=== PATIENT | female | born 1970 ===

== ENCOUNTER 2020-08-30 09:55 | Outpatient (REF) | payer OTHER, SELFPAY | END 2020-08-30 09:56 | disposition home or self-care (01) | LOC: HO.LAB 09:55 | PROVIDERS: Visit Provider Internal Medicine | DX: Z20.828 Contact with and (suspected) exposure to other viral communicable diseases (principal) | CPT/HCPCS: 87635 ==

== ENCOUNTER 2020-09-15 11:48 | Outpatient (REF) | payer OTHER, SELFPAY ==
--- NOTE | 2020-09-15 | MM_ITS ---
EXAMINATION: MM SCREENING DIGITAL BREAST TOMOSYNTHESIS, BILATERAL CLINICAL INFORMATION: Screening. Asymptomatic. The lifetime risk of breast cancer based on the Tyrer-Cuzick Model is 18.1%. COMPARISON: Mammography: March 16, 2019 and studies dating back to December 14, 2013 TECHNIQUE: Digital breast tomosynthesis is performed in both the craniocaudal and mediolateral oblique views along with computer-aided detection (CAD). Synthesized 2D images are generated from the tomosynthesis. FINDINGS: The breasts are heterogeneously dense, which may obscure small masses (ACR BI-RADS breast composition Category c). No new abnormal dominant mass or suspicious grouping of microcalcifications is identified. Surgical changes from previous bilateral breast reduction are evident. MM/MM tomosynthesis screening BI IMPRESSION: There are no significant changes from prior study. ASSESSMENT: BI-RADS 2: Benign RECOMMENDATION: Routine annual mammography screening. This patient's information was entered into a reminder system with a target due date for their next mammogram.
== END 2020-09-15 11:49 | disposition home or self-care (01) ==
LOC: HO.MAMMO 11:48
PROVIDERS: PCP Internal Medicine; Visit Provider Internal Medicine
DX: Z12.31 Encounter for screening mammogram for malignant neoplasm of breast (principal)
CPT/HCPCS: 77063; 77067

== ENCOUNTER → 2021-06-26 09:58 | Outpatient (BNVA) | payer OTHER, SELFPAY | PROVIDERS: PCP Internal Medicine; Visit Provider Surgery ==

== ENCOUNTER 2021-07-20 12:30 | Outpatient (REF) | payer OTHER, SELFPAY ==
[2021-07-20 12:45] VITALS: BP 151/87; PULSE 82; RESP 16; TEMP 36.4; O2SAT 98
[2021-07-20 12:46] VITALS: BMI 30.9
--- NOTE | 2021-07-20 13:31 | W.PM.OPN ---
Operative Note Operative Note Date of Service: 07/20/21 Narrative: Preop diagnosis: lipoma, right shoulder Postop diagnosis: Lipoma, right shoulder Procedure: Excision of lipoma, right shoulder under local anesthesia Surgeon: Herb Arias MD The patient is a 51-year-old female with a large lipomatous mass on the right shoulder. She wanted this removed. She understood the technique of excision under local anesthesia. She was aware of the risks, benefits, and alternatives She was brought to the minor procedure room and placed supine. The area of the lipomas prepped and draped. Lidocaine 1% was used for local anesthesia. A surgical time-out had been done. I made an incision on the skin overlying the lipoma using a blade 15. And this was carried down through the full-thickness skin subcutaneous fat until the lipomatous tissue was visualized. I sharply dissected the lipomatous tissue on the rest of the subcutaneous layer and posteriorly from the fascia of the right shoulder using Metzenbaum scissors. We continued this dissection until the entire lipomas completely . The lipoma measured about 8 cm by 5 0.5 cm There was noted hemostasis. I therefore closed the incision with full-thickness nylon 3-0 interrupted sutures. Dressings were applied. The patient tolerated procedure well. There were no complications noted. She was given wound care instructions. There was minimal blood loss.
== END 2021-07-20 12:31 | disposition home or self-care (01) ==
LOC: HO.MS 12:30
PROVIDERS: PCP Internal Medicine; Visit Provider Surgery
PROC: (CPT 11406; principal; 2021-07-20 12:50)
DX: D17.21 Benign lipomatous neoplasm of skin and subcutaneous tissue of right arm (principal); M79.621 Pain in right upper arm
CPT/HCPCS: 11406; 88304

== ENCOUNTER 2021-07-26 10:14 | Outpatient (REF) | payer OTHER, SELFPAY ==
[2021-07-26 11:22] LABS: MANUAL DIFF FLAG NO
[2021-07-26 11:28] LABS: Basophils Absolute Auto 0.1 X10*3/uL (0.0-0.2); Basophils Percent Auto 0.7 % (0-2); Eosinophils Absolute Auto 0.2 X10*3/uL (0.0-0.4); Eosinophils Percent Auto 2.5 % (0-4); Hematocrit 37.2 % (37-47); Hemoglobin 12.2 g/dl (12.0-16.0); Imm Gran Abs Auto 0.03 X10*3/uL (0.00-0.03); Imm Gran Pct Auto 0.4 % (0.0-0.4); Lymphocytes Percent Auto 25.2 % (20-40); Mean Corpuscular HGB Conc 32.8 g/dl (31.0-35.0); Mean Corpuscular Hemoglobin 28.4 pg (27.0-33.0); Mean Corpuscular Volume 86.5 fL (80-98); Mean Platelet Volume 10.6 fL (9.4-12.3); Monocytes Absolute Auto 0.5 X10*3/uL (0.1-1.2); Monocytes Percent Auto 5.8 % (2-11); Neutrophils Absolute Auto 5.3 X10*3/uL (2.0-8.3); Neutrophils Percent Auto 65.4 % (45-73); Platelet Count 265 X10*3/uL (160-400); Red Cell Distribution Width 14.1 % (11.0-16.0); White Blood Count 8.1 X10*3/uL (4.8-10.8)
[2021-07-26 12:07] LABS: Alanine Aminotransferase 15 U/L (0-31); Albumin Level 4.2 g/dL (3.5-5.0); Alkaline Phosphatase 85 U/L (39-117); Anion Gap 9 (12-20); Aspartate Amino Transferase 18 U/L (5-31); Bilirubin Total 0.9 mg/dL (0.0-1.0); Blood Urea Nitrogen 8 mg/dL (9-16); Calcium 10.1 mg/dL (8.4-10.2); Carbon Dioxide 26 mmol/L (22-29); Chloride 106 mmol/L (96-108); Cholesterol 176 mg/dL; Estimated Glomerular Filt Rate > 60; Glucose Random 91 mg/dL (60-115); HDL Cholesterol 45 mg/dL; LDL Cholesterol Calculated 103 mg/dl; Potassium 4.3 mmol/L (3.3-5.1); Sodium 137 mmol/L (135-145); Total Protein 7.1 g/dL (6.5-8.0); Triglycerides 142 mg/dL
[2021-07-26 13:26] LABS: Ferritin 21 ng/mL (10-250)
== END 2021-07-26 10:15 | disposition home or self-care (01) ==
LOC: HO.LAB 10:14
PROVIDERS: PCP Internal Medicine; Visit Provider Internal Medicine
DX: I10 Essential (primary) hypertension (principal); D50.9 Iron deficiency anemia, unspecified; N94.6 Dysmenorrhea, unspecified; D25.9 Leiomyoma of uterus, unspecified
CPT/HCPCS: 36415; 80053; 80061; 82728; 85025

== ENCOUNTER → 2021-08-02 08:43 | Outpatient (BNVA) | payer OTHER, SELFPAY | PROVIDERS: PCP Internal Medicine; Visit Provider Surgery ==

== ENCOUNTER 2021-11-15 13:54 | Outpatient (REF) | payer OTHER, SELFPAY ==
--- NOTE | ~2021-11-15 | MM_ITS ---
EXAMINATION: MM SCREENING DIGITAL BREAST TOMOSYNTHESIS, BILATERAL CLINICAL INFORMATION: Screening. Asymptomatic. Bilateral reduction mammoplasty within past 3-4 years. The lifetime risk of breast cancer based on the Tyrer-Cuzick Model is 14%. COMPARISON: Mammography: 09/15/2020, 03/16/2019, 03/13/2018, 02/01/2017 TECHNIQUE: Digital breast tomosynthesis is performed in both the craniocaudal and mediolateral oblique views along with computer-aided detection (CAD). Synthesized 2D images are generated from the tomosynthesis. FINDINGS: There are scattered areas of fibroglandular density (ACR BI-RADS breast composition Category b). Breast tissue composition borders on heterogeneously dense. There is minor scarring consistent with the reduction mammoplasty. Biopsy clip marker again noted right breast upper inner quadrant mid depth. Breast shows abnormal calcifications. The axilla and skin contours are unremarkable. Left breast has stable circumscribed nodule central breast on CC view similar to prior studies dating back to 2017. Right breast has focal asymmetry mid 12:00 position, more conspicuous on current exam. Patient will be recalled for additional imaging to exclude developing density. MM/MM tomosynthesis screening BI IMPRESSION: 1. Right: Asymmetry mid 12:00 position. 2. Left: No mammographic evidence of malignancy. ASSESSMENT: BI-RADS 0: Incomplete - Need Additional Imaging Evaluation RECOMMENDATION: 1. Additional views of the right breast (spot CC, spot MLO, standard ML). 2. Targeted ultrasound if warranted after review of the additional views. 3. Radiology department staff will contact the patient for additional imaging. This patient's information was entered into a reminder system with a target due date for their next mammogram.
== END 2021-11-15 13:55 | disposition home or self-care (01) ==
LOC: HO.MAMMO 13:54
PROVIDERS: Visit Provider Internal Medicine
DX: Z12.31 Encounter for screening mammogram for malignant neoplasm of breast (principal)
CPT/HCPCS: 77063; 77067

== ENCOUNTER 2021-11-21 13:41 | Outpatient (REF) | payer OTHER, SELFPAY ==
--- NOTE | ~2021-11-21 | MM_ITS ---
EXAMINATION: MM DIAGNOSTIC DIGITAL BREAST TOMOSYNTHESIS, RIGHT US DIAGNOSTIC ULTRASOUND BREAST, RIGHT CLINICAL INFORMATION: Recall from screening for focal asymmetry mid 12:00 right breast more conspicuous on recent exam. Prior history reduction mammoplasty within past 3-4 years. TC score 14%. COMPARISON: Mammography: 11/15/2021, 09/15/2020, 03/16/2019, 03/13/2018 TECHNIQUE: Digital breast tomosynthesis is performed. 2D images are generated from the tomosynthesis. The following views are obtained: Spot MLO, spot CC, standard ML. Ultrasound right breast is targeted from benign o'clock through 2:00 position. Grayscale imaging and color Doppler are performed without and with harmonics. FINDINGS: There are scattered areas of fibroglandular density (ACR BI-RADS breast composition Category b). There is denser breast tissue composition in the upper quadrants. The asymmetry is again noted on the standard ML view mid depth superior breast. There is some fatty composition within this area suggesting fibroglandular tissue. There is no persistence on the spot MLO or spot CC views suggesting summation artifact. Ultrasound right breast demonstrates no cystic or solid mass or architectural abnormality. No focal duct ectasia. Results are discussed with the patient at time of visit, using an per diem interpreter. There is no persistent finding on the T2 spot views. No ultrasound correlate. Finding on recent screening likely summation artifact. As a precaution, patient will be reassessed again in 6 months to exclude remote possibility of an occult developing density. MM/MM tomosynthesis added views R IMPRESSION: Probable summation artifact upper right breast. No ultrasound correlate. ASSESSMENT: BI-RADS 3: Probably Benign RECOMMENDATION: Diagnostic right mammography in 6 months. This patient's information was entered into a reminder system with a target due date for their next mammogram.
== END 2021-11-21 13:42 | disposition home or self-care (01) ==
LOC: HO.MAMMO 13:41
PROVIDERS: PCP Internal Medicine; Visit Provider Internal Medicine
DX: N64.89 Other specified disorders of breast (principal)
CPT/HCPCS: 76642; 77061; 77065

== ENCOUNTER 2022-01-11 10:45 | Outpatient (REF) | payer OTHER, SELFPAY ==
[2022-01-11 16:07] LABS: CT PCR NOT DETECTED (Not Detect.); NG PCR NOT DETECTED (Not Detect.)
[2022-01-18 06:47] LABS: HPV 16 RNA NOT DETECTED (NOT DETECTED); HPV mRNA E6/E7 rflx Detected (Not Detected)
== END 2022-01-11 10:46 | disposition home or self-care (01) ==
LOC: HO.LAB 10:45
PROVIDERS: PCP Internal Medicine; Visit Provider Obstetrics & Gynecology
DX: N94.6 Dysmenorrhea, unspecified (principal); Z11.51 Encounter for screening for human papillomavirus (HPV); Z12.4 Encounter for screening for malignant neoplasm of cervix
CPT/HCPCS: 87491; 87591; 87624; 87625; 88142

== ENCOUNTER 2022-02-01 10:45 | Outpatient (REF) | payer OTHER, SELFPAY ==
--- NOTE | ~2022-02-01 | US_ITS ---
EXAM: Pelvic Ultrasound CLINICAL INDICATION: Dysmenorrhea COMPARISON: CT abdomen pelvis 10/12/2020 and pelvic ultrasound 03/11/2017 TECHNIQUE: The pelvis was evaluated using transabdominal and transvaginal imaging. FINDINGS: The uterus measures 13.3 x 6.1 x 9.0 cm in longitudinal by AP by transverse dimension. The endometrial stripe measures 0.6 cm. Several small uterine fibroids are noted, the largest measuring approximately 2.3 cm (previously 2.8 cm). Prominent nabothian cysts are noted within the cervix. The left ovary measures approximately 3.2 x 1.9 x 2.5 CM. 3 mm echogenic focus is again noted within the left ovary and suspected to be a small calcification. The right ovary measures approximately 3.4 x 2.4 x 2.9 cm and is normal. There is no free fluid in the pelvis. US/US pelvic and transvaginal IMPRESSION: -Uterine fibroids again noted. -Stable 3 mm echogenic focus of the left ovary, suspected calcification. -Nabothian cyst of the cervix. -Endometrial stripe measures 6 mm in thickness. Correlation with menstrual cycle recommended.
== END 2022-02-01 10:46 | disposition home or self-care (01) ==
LOC: HO.US 10:45
PROVIDERS: Visit Provider Obstetrics & Gynecology
DX: N94.6 Dysmenorrhea, unspecified (principal)
CPT/HCPCS: 76830; 76856

== ENCOUNTER 2022-02-28 08:42 | Outpatient (REF) | payer OTHER, SELFPAY | END 2022-02-28 08:43 | disposition home or self-care (01) | LOC: HO.LAB 08:42 | PROVIDERS: PCP Internal Medicine; Visit Provider Obstetrics & Gynecology | DX: R87.610 Atypical squamous cells of undetermined significance on cytologic smear of cervix (ASC-US) (principal); R87.810 Cervical high risk human papillomavirus (HPV) DNA test positive; D21.9 Benign neoplasm of connective and other soft tissue, unspecified | CPT/HCPCS: 57454; 81025; 88305 ==

== ENCOUNTER → 2022-04-11 09:27 | Outpatient (BNVA) | payer OTHER, SELFPAY | PROVIDERS: Visit Provider Obstetrics & Gynecology | DX: Z13.89 Encounter for screening for other disorder (principal) ==

== ENCOUNTER 2022-05-21 10:34 | Outpatient (REF) | payer OTHER, SELFPAY ==
--- NOTE | ~2022-05-21 | MM_ITS ---
EXAMINATION: MM DIAGNOSTIC DIGITAL BREAST TOMOSYNTHESIS, RIGHT CLINICAL INFORMATION: Short interval six-month follow-up for probable benign parenchymal asymmetry 12:00 right breast. History reduction mammoplasty within past 4 years. TC score 18%. COMPARISON: Mammography: 11/21/2021, 152 (BI-RADS 0), 09/15/2020, 03/16/2019; targeted right breast ultrasound 11/21/2021 TECHNIQUE: Digital breast tomosynthesis is performed in both the craniocaudal and mediolateral oblique views along with computer-aided detection (CAD). Synthesized 2D images are generated from the tomosynthesis. FINDINGS: There are scattered areas of fibroglandular density (ACR BI-RADS breast composition Category b). There are scattered shifting fibroglandular parenchymal densities from year to year related to variation in positioning. No developing density or significant changes. Biopsy clip marker again noted mid central 2:00 position. The axilla is unremarkable. Results are provided to the patient at time of visit by the technologist. MM/MM tomosynthesis diagnostic RT IMPRESSION: No significant changes from prior exams. Right breast will be reassessed at time of annual bilateral mammography, due in 6 months. ASSESSMENT: BI-RADS 3: Probably Benign RECOMMENDATION: Diagnostic mammography at time of bilateral exam, due in 6 months. This patient's information was entered into a reminder system with a target due date for their next mammogram.
== END 2022-05-21 10:35 | disposition home or self-care (01) ==
LOC: HO.MAMMO 10:34
PROVIDERS: PCP Internal Medicine; Visit Provider Internal Medicine
DX: N64.89 Other specified disorders of breast (principal); Z41.1 Encounter for cosmetic surgery
CPT/HCPCS: 77061; 77065

== ENCOUNTER 2022-05-28 09:22 | Outpatient (REF) | payer OTHER, SELFPAY ==
[2022-05-28 09:54] LABS: MANUAL DIFF FLAG NO
[2022-05-28 10:44] LABS: Basophils Absolute Auto 0.1 X10*3/uL (0.0-0.2); Eosinophils Absolute Auto 0.3 X10*3/uL (0.0-0.4); Eosinophils Percent Auto 3.3 % (0-4); Hematocrit 36.5 % (37.0-47.0); Hemoglobin 12.3 g/dl (12.0-16.0); Imm Gran Abs Auto 0.02 X10*3/uL (0.00-0.03); Imm Gran Pct Auto 0.3 % (0.0-0.4); Lymphocytes Percent Auto 25.8 % (20-40); Mean Corpuscular HGB Conc 33.7 g/dl (31.0-35.0); Mean Corpuscular Hemoglobin 29.1 pg (27.0-33.0); Mean Corpuscular Volume 86.3 fL (80.0-98.0); Mean Platelet Volume 10.6 fL (9.4-12.3); Monocytes Absolute Auto 0.5 X10*3/uL (0.1-1.2); Monocytes Percent Auto 6.7 % (2-11); Neutrophils Absolute Auto 4.9 x10*3/uL (2.0-8.3); Neutrophils Percent Auto 62.9 % (45-73); Platelet Count 268 X10*3/uL (160-400); Red Blood Count 4.23 X10*6/uL (4.20-5.50); Red Cell Distribution Width 13.7 % (11.0-16.0); White Blood Count 7.8 X10*3/uL (4.8-10.8)
== END 2022-05-28 09:23 | disposition home or self-care (01) ==
LOC: HO.LAB 09:22
PROVIDERS: PCP Internal Medicine; Visit Provider Internal Medicine
DX: Z00.00 Encounter for general adult medical examination without abnormal findings (principal); D50.9 Iron deficiency anemia, unspecified; I10 Essential (primary) hypertension; M17.11 Unilateral primary osteoarthritis, right knee; Z12.4 Encounter for screening for malignant neoplasm of cervix
CPT/HCPCS: 36415; 85025

== ENCOUNTER → 2022-05-30 12:29 | Outpatient (REF) | payer OTHER, SELFPAY ==
--- NOTE | 2022-05-30 12:34 | CA_ITS ---
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 Technically limited study despite use of contrast agent 2. Hyperdynamic LV systolic function with LVEF of greater than 70% with impaired relaxation filling pattern 3. Limited visualization of cardiac valves with normal cardiac valvular Dopplers Findings Procedure Information Contrast agent, definity, is being given per protocol without apparent complications. Left Ventricle The left ventricle was not well visualized. Normal left ventricular cavity size. There is normal left ventricular wall thickness. The left ventricular systolic function is hyperdynamic. The visually estimated ejection fraction is >70%. Spectral Doppler is indicative of an impaired relaxation filling pattern. Right Ventricle The right ventricle was not well visualized. Atria The left atrium is normal in size. There is lipomatous hypertrophy of the interatrial septum. Interatrial shunt cannot be excluded. The right atrium was not well visualized. Aortic Valve The aortic valve was not well visualized. There is no aortic valve stenosis. There is no aortic valve regurgitation. Mitral Valve The mitral valve was not well visualized. There is no mitral valve regurgitation. There is no mitral valve stenosis. Pulmonic Valve The pulmonic valve was not well visualized. Tricuspid Valve The tricuspid valve was not well visualized. Tricuspid regurgitation envelope is inadequate for calculation of right ventricular systolic pressure. Great Vessels The aorta was not well visualized. The pulmonary artery was not well visualized. Venous The inferior vena cava was not well visualized. Pericardium/Pleural The pericardium was not well visualized. Prior Study Comparison No prior study available for comparison. Measurements 2D Linear Measurements IVSd: 0.92 0.6-0.9/0.6-1.0 cm LVIDd: 3.33 3.9-5.3/4.2-5.9 cm LVIDd Index: 1.98 2.4-3.2/2.2-3.1 cm/m2 LVIDs: 1.71 2.0-3.6 cm LVPWd: 0.73 0.7-1.1 cm LA Diam: 3.20 2.7-3.8/3.0-4.0 cm LAIDs Index: 1.90 1.5-2.3 cm/m2 LV Mass: 90.28 67-162/88-224 g LV Mass Index: 53.74 43-95/49-115 g/m2 LVOT Diam: 1.80 3.0+(-)1.3 cm 2D Systolic Function EF 4C: 77.80 >55% EF 2C: 82.50 >55% Mitral Valve MV Pk E: 0.57 MV PK A: 0.70 MV Decel Time: 167.00 E/A: 0.80 E'Lateral: 8.70 E'Medial: 5.87 E/E' Med: 9.80 E/E' Lat: 6.60 PHT: 49.00 MVA PHT: 4.49 Decel Denali: 3.44 Aortic Valve AoV Pk Babar: 1.21 AoV Mn Babar: 0.75 AoV VTI: 0.18 AoV Pk Grad: 6.00 Aov Mn Grad: 3.00 AFIA Cont.VTI: 3.32 LVOT LVOT Pk Babar: 1.17 LVOT Mn Babar: 0.88 LVOT VTI: 0.23 LVOT Pk Grad: 5.00 LVOT Mn Grad: 3.00 LVOT Diam: 1.80 LVOT Area: 2.54 Diastolic Function MV Pk E: 0.57 MV Pk A: 0.70 E/A: 0.80 E'Medial: 5.87 E/E' Med: 9.80 E' Laterial: 8.70 E/E' Lat: 6.60 Right Ventricle TAPSE (mm): 12.20 TVS' Babar: 10.10 Tricuspid Valve RA Press: 3.00 Great Vessels Aorta Sinus of Valsalva: 2.50 2.0-3.5 cm Ao Asc: 2.70 2.1-3.4 cm Pulmonary Valve PV Pk Babar: 0.88 Peak PV Grad: 3.00 Updated in Other Vendor System with Status of Final Carlitos Watson MD electronically signed on 05/30/2022 3:01:35 PM with status of Final
== END ==
LOC: HO.CARD 12:29
PROVIDERS: PCP Internal Medicine; Visit Provider Internal Medicine
DX: I10 Essential (primary) hypertension (principal); R06.02 Shortness of breath
CPT/HCPCS: 93306; Q9957

== ENCOUNTER 2022-07-09 08:41 | Outpatient (REF) | payer OTHER, SELFPAY ==
[2022-07-09 08:51] LABS: MANUAL DIFF FLAG NO
[2022-07-09 09:03] LABS: Basophils Absolute Auto 0.1 X10*3/uL (0.0-0.2); Eosinophils Absolute Auto 0.3 X10*3/uL (0.0-0.4); Eosinophils Percent Auto 3.3 % (0-4); Hematocrit 37.5 % (37.0-47.0); Hemoglobin 13.1 g/dl (12.0-16.0); Imm Gran Abs Auto 0.02 X10*3/uL (0.00-0.03); Imm Gran Pct Auto 0.2 % (0.0-0.4); Lymphocytes Absolute Auto 2.5 X10*3/uL (1.2-4.9); Lymphocytes Percent Auto 30.3 % (20-40); Mean Corpuscular HGB Conc 34.9 g/dl (31.0-35.0); Mean Corpuscular Hemoglobin 29.4 pg (27.0-33.0); Mean Corpuscular Volume 84.3 fL (80.0-98.0); Mean Platelet Volume 9.7 fL (9.4-12.3); Monocytes Absolute Auto 0.5 X10*3/uL (0.1-1.2); Monocytes Percent Auto 5.7 % (2-11); Neutrophils Absolute Auto 4.9 x10*3/uL (2.0-8.3); Neutrophils Percent Auto 59.5 % (45-73); Platelet Count 296 X10*3/uL (160-400); Red Blood Count 4.45 X10*6/uL (4.20-5.50); Red Cell Distribution Width 13.2 % (11.0-16.0); White Blood Count 8.2 X10*3/uL (4.8-10.8)
[2022-07-09 09:37] LABS: Alanine Aminotransferase 19 U/L (0-31); Albumin Level 4.2 g/dL (3.5-5.0); Alkaline Phosphatase 75 U/L (39-117); Anion Gap 14 (12-20); Aspartate Amino Transferase 22 U/L (5-31); Bilirubin Total 0.6 mg/dL (0.0-1.0); Blood Urea Nitrogen 12 mg/dL (9-16); Calcium 10.1 mg/dL (8.4-10.2); Carbon Dioxide 24 mmol/L (22-29); Chloride 103 mmol/L (96-108); Cholesterol 204 mg/dL; Estimated Glomerular Filt Rate > 60; Glucose Random 105 mg/dL (60-115); HDL Cholesterol 47 mg/dL; LDL Cholesterol Calculated 135 mg/dl; Potassium 3.4 mmol/L (3.3-5.1); Sodium 138 mmol/L (135-145); Total Protein 7.7 g/dL (6.5-8.0); Triglycerides 114 mg/dL
== END 2022-07-09 08:42 | disposition home or self-care (01) ==
LOC: HO.LAB 08:41
PROVIDERS: PCP Internal Medicine; Visit Provider Internal Medicine
DX: I10 Essential (primary) hypertension (principal); M17.11 Unilateral primary osteoarthritis, right knee; R06.02 Shortness of breath
CPT/HCPCS: 36415; 80053; 80061; 85025

== ENCOUNTER 2022-09-07 06:59 | Day surgery (SDC) | payer OTHER, SELFPAY ==
[2022-09-03 13:45] VITALS: BMI 32.5
--- NOTE | 2022-09-06 09:23 | HO.ANESPROP2 ---
Documented by User: Clair Esparza NP 09/06/22 09:24 HPI - Anesthesia Eval Consult details Narrative: 52yo F for Colonoscopy PMFSH Active Problems Active Problems: All Active Problems (Updated 09/03/22 @ 13:42 by Angélica Evans, NATASHA) Dysmenorrhea (Acute) Myoma (Acute) ASCUS with positive high risk HPV cervical (Acute) Colon cancer screening (Acute) GERD (gastroesophageal reflux disease) (Acute) Lipoma of right shoulder (Acute) Past Medical History Medical History Colon cancer screening Depression GERD (gastroesophageal reflux disease) Hypertension Iron deficiency anemia Lipoma of right shoulder On beta uriel at home PONV (postoperative nausea and vomiting) Tension headache Family History Family History Mother Breast cancer Bone cancer Maternal Aunt Breast cancer Surgical History Surgical History H/O right breast biopsy History of bilateral breast reduction surgery History of endometrial ablation Hx of tubal ligation Status post excision of lipoma Social History Social History Alcohol intake: never Patient Tobacco Use Status: Never used Tobacco Use of substances other than those prescribed or required for medical reasons: No Are you DNR?: No Advance Directives: No Advance Directives Information Provided: Yes Meds Allergies Allergy/AdvReac Type Severity Reaction Status Date / Time No Known Allergies Allergy Verified 08/01/22 09:33 Home Medications Medication Instructions Recorded Confirmed Last Taken Type losartan 100 1 tab PO DAILY 06/26/21 09/03/22 Unknown History mg-hydrochlorothiazide 25 mg tablet naproxen 500 mg tablet 500 mg PO BID 06/26/21 09/03/22 Unknown History amlodipine 10 mg tablet 10 mg PO DAILY 08/01/22 09/03/22 09/07/22 History atorvastatin 40 mg tablet 40 mg PO DAILY 08/01/22 09/03/22 Unknown History metoprolol succinate 100 mg 100 mg PO DAILY 08/01/22 09/03/22 09/07/22 History tablet,extended release 24 hr Exam Exam Date and Time: September 06, 2022922 Height,Weight and Vital Signs: Height 4 ft 11 in Weight 73.028 kg Pertinent Lab Results Pertinent Lab Results: Laboratory Tests 07/09/22 07/09/22 08:50 08:50 WBC 8.2 Hgb 13.1 Hct 37.5 Plt Count 296 Sodium 138 Potassium 3.4 D Chloride 103 Carbon Dioxide 24 BUN 12 Creatinine 0.71 Narrative Narrative: ECHO 05/2022 Conclusions: - 1. Technically limited study despite use of contrast agent ? ? 2. Hyperdynamic LV systolic function with LVEF of greater than ? 70% with impaired relaxation filling pattern ? 3. Limited visualization of cardiac valves with normal cardiac ? valvular Dopplers?? Assessment and Plan Assessment Anesthesia Assessment: Chart Reviewed Documented by User: Stacie Torres MD 09/07/22 08:31 [facility] Past Medical History Medical History Colon cancer screening Depression GERD (gastroesophageal reflux disease) Hypertension Iron deficiency anemia Lipoma of right shoulder On beta urile at home PONV (postoperative nausea and vomiting) Tension headache Family History Family History Mother Breast cancer Bone cancer Maternal Aunt Breast cancer Family history of problems with anesthesia: No Surgical History Surgical History H/O right breast biopsy History of bilateral breast reduction surgery History of endometrial ablation Hx of tubal ligation Status post excision of lipoma History of Problems with Anesthesia: Yes (PONV) Social History Social History Alcohol intake: never Patient Tobacco Use Status: Never used Tobacco Use of substances other than those prescribed or required for medical reasons: No Are you DNR?: No Advance Directives: No Advance Directives Information Provided: Yes Meds Allergies Allergy/AdvReac Type Severity Reaction Status Date / Time No Known Allergies Allergy Verified 08/01/22 09:33 Home Medications Medication Instructions Recorded Confirmed Last Taken Type losartan 100 1 tab PO DAILY 06/26/21 09/03/22 Unknown History mg-hydrochlorothiazide 25 mg tablet naproxen 500 mg tablet 500 mg PO BID 06/26/21 09/03/22 Unknown History amlodipine 10 mg tablet 10 mg PO DAILY 08/01/22 09/03/22 09/07/22 History atorvastatin 40 mg tablet 40 mg PO DAILY 08/01/22 09/03/22 Unknown History metoprolol succinate 100 mg 100 mg PO DAILY 08/01/22 09/03/22 09/07/22 History tablet,extended release 24 hr Exam Height,Weight and Vital Signs: Height 4 ft 11 in Weight 73.028 kg Vital Signs Temp Pulse Resp BP Pulse Ox O2 Del Method 09/07/22 07:29 97.7 F 90 16 151/93 H 98 Room Air Airway Mallampati Class: II TM Dist: >3cm Neck ROM: Full Loose/Missing/Broken Teeth: Yes (Some missing back) Heart: RRR Lungs: CTAB Assessment and Plan Assessment Anesthesia Assessment: Anesthesia Plan Discussed Final Anesthetic Review Family History of Problems with Anesthesia: No History of Problems with Anesthesia: Yes (PONV) NPO: Yes ASA Class: II Final Preanesthetic Review: No Changes in Pt Med Stat, Meds/Allgs Chart Reviewed, Consent Obtained/Reviewed and Anes Risks/Benef Reviewed Patient Risk: Low Procedure Risk: Low Assessment/Block/Sedation in SS: Assess/Block/Sedation-SS Anesthetic Plan Anesthetic Plan: MAC: Disposition: Standard PACU
[2022-09-07 07:29] VITALS: BP 151/93; PULSE 90; RESP 16; TEMP 36.5; O2SAT 98
[2022-09-07] MEDS: Lactated Ringers 1,000 ML 100 ML IVCONT (07:56)
--- NOTE | 2022-09-07 08:54 | P.HPSUR_ITS ---
Pre-Procedural Eval Section A Date of Service: 09/07/22 Section B Chief Complaint: screening, possible polypectomy Details of Present Illness: For screening colonoscopy Relevant Family History (Specify if Yes): No Relevant Social History: None Present Medications: see Short Stay Collaborative assessment Medical History: Significant History ( GERD) Allergies: Allergies Allergy/AdvReac Type Severity Reaction Status Date / Time No Known Allergies Allergy Verified 08/01/22 09:33 Review of Systems Sugical H&P ROS: Negative: Constitution, Cardiovascular, Respiratory, Neurological, Psychiatric, Hem-Onc, Allergic/Immunologic, Gastrointestinal, Genitourinary, Musculoskeletal, Integumentary, Endocrine and Eyes/Ears/Nose/Throat Exam Surgical H&P Exam: Normal: HEENT, Normal: Heart, Normal: Lungs, Normal: Extrem ities, Normal: Abdomen, Normal: Skin and Normal: Neurological Plan Diagnosis/Plan: Unchanged I have reviewed the history and physical and performed a pertinent physical examination on my patient. No changes have occurred unless specified.
--- NOTE | 2022-09-07 08:55 | W.PM.OPN ---
Operative Note Operative Note Date of Service: 09/07/22 Narrative: Preop diagnosis: Colon cancer screening Postop diagnosis: Internal and external hemorrhoids otherwise normal colonoscopy findings Procedure: Colonoscopy Surgeon: Herb Arias MD The patient is a 52-year-old female referred to me for screening colonoscopy. She understood the technique of the procedure. She was aware of the risks, benefits, and alternatives. The patient was brought to the operating room and placed in left lateral decubitus position under monitored anesthesia care. A surgical time-out was done. A full digital rectal exam was done and this did not reveal any significant anal lesions nor induration. The tip of the Olympus colonoscope was gently introduced through the anal orifice advanced with insufflation all the way to the cecum. The cecum was intubated. The cecum was identified by visualization of the ileocecal valve as well as the appendiceal orifice. The cecal mucosa was unremarkable. The scope was gradually withdrawn with careful examination of the entire colonic mucosa being done with scope withdrawal. The patient had adequate bowel prep so it was unlikely that any lesion may have been missed. The rectum was reached and there were no lesions seen. The anal canal was unremarkable. The scope was then withdrawn completely with desufflation. The patient tolerated procedure well. There were no immediate complications. [Her] next colonoscopy may be in the next [10] years.
[2022-09-07 09:02] VITALS: BP 116/61; PULSE 88; RESP 14; TEMP 36.1; O2SAT 99
[2022-09-07 09:17] VITALS: BP 129/74; PULSE 70; RESP 16; O2SAT 99
[2022-09-07 09:32] VITALS: BP 128/73; PULSE 70; RESP 16; TEMP 36.1; O2SAT 99
== END 2022-09-07 10:12 | disposition home or self-care (01) ==
LOC: HO.SSS 07:00
PROVIDERS: PCP Internal Medicine; Visit Provider Surgery
PROC: 0DJD8ZZ Inspection of Lower Intestinal Tract, Via Natural or Artificial Opening Endoscopic (ICD-10-PCS; CPT 45378; principal; 2022-09-07 08:30)
DX: Z12.11 Encounter for screening for malignant neoplasm of colon (principal); K64.8 Other hemorrhoids; K64.4 Residual hemorrhoidal skin tags; K21.9 Gastro-esophageal reflux disease without esophagitis; I10 Essential (primary) hypertension; Z79.899 Other long term (current) drug therapy; Z79.1 Long term (current) use of non-steroidal anti-inflammatories (NSAID)
CPT/HCPCS: 45378; J2250; J2405

== ENCOUNTER 2022-11-23 12:30 | Outpatient (REF) | payer OTHER, SELFPAY ==
--- NOTE | ~2022-11-23 | MM_ITS ---
EXAMINATION: MM DIAGNOSTIC DIGITAL BREAST TOMOSYNTHESIS, BILATERAL CLINICAL INFORMATION: One-year follow up for bilateral breast asymmetry. The lifetime risk of breast cancer based on the Tyrer-Cuzick Model is 17%. COMPARISON: Mammography: 05/21/2022 and studies dating back to 12/21/2014. TECHNIQUE: Digital breast tomosynthesis is performed in both the craniocaudal and mediolateral oblique views along with computer-aided detection (CAD). Synthesized 2D images are generated from the tomosynthesis. Additional spot compression views of the right breast in craniocaudal and mediolateral oblique projections performed. FINDINGS: The breasts are heterogeneously dense, which may obscure small masses (ACR BI-RADS breast composition category C). There are bilateral stable regions of architectural distortion related to previous breast reduction surgery. A region of asymmetric density is again noted within the superior aspect of the right breast for which spot compression views were performed which demonstrated this to represent stable parenchymal pattern to previous studies. No new abnormal mass densities or suspicious grouping of calcifications identified. Results are provided to the patient at time of visit by the technologist. MM/MM tomosynthesis diagnostic BI IMPRESSION: There are no significant changes from prior study. ASSESSMENT: BI-RADS 2: Benign RECOMMENDATION: Routine annual mammography screening. This patient's information was entered into a reminder system with a target due date for their next mammogram.
== END 2022-11-23 12:31 | disposition home or self-care (01) ==
LOC: HO.MAMMO 12:30
PROVIDERS: PCP Internal Medicine; Visit Provider Internal Medicine
DX: N64.89 Other specified disorders of breast (principal)
CPT/HCPCS: 77062; 77066

== ENCOUNTER 2022-11-27 09:32 | Outpatient (REF) | payer OTHER, SELFPAY ==
[2022-11-27 12:22] LABS: Cholesterol 149 mg/dL; HDL Cholesterol 49 mg/dL; LDL Cholesterol Calculated 85 mg/dl; Triglycerides 78 mg/dL
[2022-11-27 12:39] LABS: Thyroid Stimulating Hormone 1.32 uIU/mL (0.32-4.0)
== END 2022-11-27 09:33 | disposition home or self-care (01) ==
LOC: HO.LAB 09:32
PROVIDERS: PCP Internal Medicine; Visit Provider Internal Medicine
DX: I10 Essential (primary) hypertension (principal); E78.00 Pure hypercholesterolemia, unspecified; Z68.33 Body mass index [BMI] 33.0-33.9, adult
CPT/HCPCS: 36415; 80061; 84443

== ENCOUNTER 2023-02-27 08:15 | Outpatient (REF) | payer OTHER, SELFPAY ==
[2023-02-27 08:36] LABS: MANUAL DIFF FLAG NO
[2023-02-27 09:18] LABS: Basophils Absolute Auto 0.1 X10*3/uL (0.0-0.2); Basophils Percent Auto 0.8 % (0-2); Eosinophils Absolute Auto 0.3 X10*3/uL (0.0-0.4); Eosinophils Percent Auto 3.5 % (0-4); Hematocrit 40.5 % (37.0-47.0); Hemoglobin 13.2 g/dl (12.0-16.0); Imm Gran Abs Auto 0.02 X10*3/uL (0.00-0.03); Imm Gran Pct Auto 0.3 % (0.0-0.4); Lymphocytes Absolute Auto 2.3 X10*3/uL (1.2-4.9); Lymphocytes Percent Auto 29.2 % (20-40); Mean Corpuscular HGB Conc 32.6 g/dl (31.0-35.0); Mean Corpuscular Hemoglobin 27.9 pg (27.0-33.0); Mean Corpuscular Volume 85.6 fL (80.0-98.0); Mean Platelet Volume 10.9 fL (9.4-12.3); Monocytes Absolute Auto 0.5 X10*3/uL (0.1-1.2); Monocytes Percent Auto 6.2 % (2-11); Neutrophils Absolute Auto 4.8 x10*3/uL (2.0-8.3); Platelet Count 339 X10*3/uL (160-400); Red Blood Count 4.73 X10*6/uL (4.20-5.50); Red Cell Distribution Width 14.1 % (11.0-16.0); White Blood Count 7.9 X10*3/uL (4.8-10.8)
[2023-02-27 09:50] LABS: Alanine Aminotransferase 39 U/L (0-31); Albumin Level 4.3 g/dL (3.5-5.0); Alkaline Phosphatase 81 U/L (39-117); Anion Gap 12 (12-20); Aspartate Amino Transferase 33 U/L (5-31); Bilirubin Total 0.6 mg/dL (0.0-1.0); Blood Urea Nitrogen 21 mg/dL (9-16); Calcium 10.2 mg/dL (8.4-10.2); Carbon Dioxide 27 mmol/L (22-29); Chloride 105 mmol/L (96-108); Cholesterol 201 mg/dL; Estimated Glomerular Filt Rate 58; Glucose Random 104 mg/dL (60-115); HDL Cholesterol 35 mg/dL; LDL Cholesterol Calculated 142 mg/dl; Potassium 3.6 mmol/L (3.3-5.1); Sodium 140 mmol/L (135-145); Total Protein 7.6 g/dL (6.5-8.0); Triglycerides 121 mg/dL
== END 2023-02-27 08:16 | disposition home or self-care (01) ==
LOC: HO.LAB 08:15
PROVIDERS: PCP Internal Medicine; Visit Provider Internal Medicine
DX: Z00.00 Encounter for general adult medical examination without abnormal findings (principal); E78.00 Pure hypercholesterolemia, unspecified; E87.6 Hypokalemia; I10 Essential (primary) hypertension; M79.10 Myalgia, unspecified site
CPT/HCPCS: 36415; 80053; 80061; 85025

== ENCOUNTER 2023-04-05 12:02 | Outpatient (REF) | payer OTHER, SELFPAY ==
[2023-04-11 22:54] LABS: HPV mRNA E6/E7 rflx Not Detected (Not Detected)
== END 2023-04-05 12:03 | disposition home or self-care (01) ==
LOC: HO.LNP 12:02
PROVIDERS: PCP Internal Medicine; Visit Provider Obstetrics & Gynecology
DX: Z01.419 Encounter for gynecological examination (general) (routine) without abnormal findings (principal); D21.9 Benign neoplasm of connective and other soft tissue, unspecified
CPT/HCPCS: 87624; 88142

== ENCOUNTER 2023-04-12 13:51 | Outpatient (REF) | payer OTHER, SELFPAY ==
--- NOTE | ~2023-04-12 | US_ITS ---
EXAMINATION: US PELVIS CLINICAL INFORMATION: Uterine fibroids. COMPARISON: Pelvic ultrasound 02/01/2022. TECHNIQUE: Ultrasound of the pelvis is performed using both transabdominal and transvaginal transducers along with Doppler. Transvaginal imaging is performed due to inadequate visualization transabdominally. FINDINGS: Uterus: The uterus is anteverted and measures 11.7 x 6.4 x 8.6 cm. Volume 337 mL. The double wall endometrial thickness is 0.9 mm. Anterior right lower uterine segment fibroid 1.5 x 1.1 x 1.5 cm, previously 1.0 x 1.0 x 1.0 cm. Posterior corpus fibroid 1.5 x 0.3 x 1.5 cm, previously 1.4 x 0.9 x 1.1 cm. Fundal fibroid 2.5 x 1.8 x 1.8 cm, previously 2.3 x 1.8 x 1.8 cm. Nabothian cysts in the cervix. Adnexa: Both ovaries are visualized. There is normal color flow to the adnexa. There is no ovarian torsion. There is no pelvic ascites or fluid collection. Right ovary measures 3.1 x 2.2 x 2.2 cm. 8 mL. Left ovary measures 3.1 x 2.5 x 2.2 cm. 9 mL. US/US pelvic and transvaginal IMPRESSION: Stable fibroid uterus.
== END 2023-04-12 13:52 | disposition home or self-care (01) ==
LOC: HO.US 13:51
PROVIDERS: PCP Internal Medicine; Visit Provider Obstetrics & Gynecology
DX: D21.9 Benign neoplasm of connective and other soft tissue, unspecified (principal)
CPT/HCPCS: 76830; 76856

== ENCOUNTER → 2023-05-20 08:16 | Outpatient (BNVA) | payer OTHER, SELFPAY | PROVIDERS: PCP Internal Medicine; Visit Provider Obstetrics & Gynecology ==

== ENCOUNTER 2023-07-23 09:35 | Outpatient (REF) | payer OTHER, SELFPAY ==
[2023-07-23 10:51] LABS: Hematocrit 38.2 % (37.0-47.0); Hemoglobin 12.5 g/dl (12.0-16.0); Mean Corpuscular HGB Conc 32.7 g/dl (31.0-35.0); Mean Corpuscular Hemoglobin 28.2 pg (27.0-33.0); Mean Corpuscular Volume 86.2 fL (80.0-98.0); Mean Platelet Volume 10.2 fL (9.4-12.3); Platelet Count 285 X10*3/uL (160-400); Red Blood Count 4.43 X10*6/uL (4.20-5.50); Red Cell Distribution Width 13.8 % (11.0-16.0); White Blood Count 5.8 X10*3/uL (4.8-10.8)
[2023-07-23 11:46] LABS: HCG Quantitative < 2 mIU/mL; TSH reflex Free T4 1.25 uIU/mL (0.32-4.0)
[2023-07-25 16:58] LABS: Follicle Stimulating Hormone 14.4 mIU/mL; Lutenizing Hormone 6.2 mIU/mL; Prolactin 7.3 ng/mL
== END 2023-07-23 09:36 | disposition home or self-care (01) ==
LOC: CF 09:35
PROVIDERS: PCP Internal Medicine; Visit Provider Obstetrics & Gynecology
DX: N93.9 Abnormal uterine and vaginal bleeding, unspecified (principal)
CPT/HCPCS: 36415; 58100; 83001; 83002; 84146; 84443; 84702; 85027

== ENCOUNTER 2023-07-23 09:35 | Outpatient (AMB) | payer OTHER, SELFPAY ==
--- NOTE | 2023-07-23 09:40 | MHC.OFFVIS ---
Intake Vital Signs 07/23/23 09:45 Height 4 ft 11 in Weight 160 lb 14.999 oz BMI 32.5 BP 124/76 Intake Visit Reasons: vaginal bleeding Side Panel Hanger Required: Yes Side Panel Hanger Language: Certified Dialysis Technician Name: Ceci COMBS Information Interpreted: non-clinical & clinical Insurance Agency Owner: Insurance Agency Owner Present (Ceci COMBS) Accompanied by: Self / Same As Patient Allergies No Known Allergies Allergy (Verified 07/23/23 09:46) Is last menstrual period known: Yes HPI HPI Comments History of Present Illness Details Presenting complaining of heavy vaginal bleeding associated with pelvic cramping and passage of blood clots. 03/03 H&H was 13.2/40.1, ultrasound done on 05/03 showed multiple myomas at his mildly increased in size. Mammogram done in 12/03 was BI-RADS 2, co testing done in 03/02 showed ascus/HPV positive, colpo biopsy was negative. The patient had endometrial ablation in 05/27 [facility] Medical History PONV (postoperative nausea and vomiting) Tension headache Depression Iron deficiency anemia On beta uriel at home Colon cancer screening GERD (gastroesophageal reflux disease) Hypertension Lipoma of right shoulder Surgical History H/O right breast biopsy History of endometrial ablation Hx of tubal ligation Status post excision of lipoma History of bilateral breast reduction surgery Family History Mother Breast cancer Bone cancer Maternal Aunt Breast cancer Social History Alcohol intake: never Patient Tobacco Use Status: Never used Tobacco Female Reproductive History Menstrual Age of Menarche: 12 Physical Exam Vital Signs: Last Vital Signs BP 124/76 07/23/23 09:45 BMI result Body Mass Index 32.5 Office Procedures Endometrial Biopsy Details: The patient was counseled regarding the indication and benefits of endometrial sampling to rule out endometrial pathology including not limited to endometrial hyperplasia or endometrial cancer and others; The alternatives (Either do nothing vs. hysteroscopy D&C) & the risks were discussed with the patient including but not limited: pain, uterine perforation, bleeding, infection, possible injury to bladder, bowel, ureter, possible need for blood transfusion with all its possible risks. The patient verbalized understanding all questions answered and signed consent. Urine test done in the office was negative The patient was placed into the dorsal lithotomy position; a speculum was inserted in the vagina. Using aseptic technique for the procedure, the cervix was cleansed with Betadine. The anterior lip of the cervix was grasped with a single tooth tenaculum. The uterus was sounded to 7 cm with a 4 mm Pipelle was used. Tissues samples were obtained and placed in formalin, in a patient labeled container and sent to the pathology department. At the end of the procedure, there was minimal bleeding noted The patient tolerated the procedure well and was discharged in good condition with the following instructions: Nothing in the vagina until the bleeding stops. No sex until the bleeding stops, to call if any of the following occurs: fever (>100.4), flu-like symptoms, abdominal pain, heavy bleeding, four smelling vaginal discharge. The patient was instructed to schedule a Follow up appointment in 2 weeks to discuss pathology results of the biopsy and treatment options. This note was generated with a voice recognition program. Some errors may have been overlooked during the review of this note. Sometimes these errors may affect the content or meaning of a given sentence. [id number] Biopsy Assessment & Plan Assessment & Plan (1) Abnormal uterine bleeding (AUB): Comment: History of endometrial ablation Pelvic pain and myomas Code(s): N93.9 - Abnormal uterine and vaginal bleeding, unspecified Plan: Co testing done since patient had ascus/HPV positive followed by negative biopsies in 03/02, GC and chlamydia taken CBC, prolactin, FSH/LH, TSH, HCG, and pelvic ultrasound ordered. Discussed with the patient the different causes of abnormal bleeding including thyroid disorders, uterine and ovarian pathology, endometrial hyperplasia, carcinoma and other potential causes. Discussed with the patient the work up including CBC (to r/o anemia), TSH, prolactin, FSH/LH, pelvic Ultrasound, endometrial biopsy to r/o endometrial pathology. EMB done, see procedure note. All questions answered and the patient verbalized understanding. Instructions given the patient to schedule a 2 week follow-up appoint Orders: Orders HCG Quantitative Today N93.9 - Abnormal uterine and vaginal bleeding, unspecified US pelvic and transvaginal Today N93.9 - Abnormal uterine and vaginal bleeding, unspecified AMB Endometrial Biopsy Today N93.9 - Abnormal uterine and vaginal bleeding, unspecified Complete Blood Count no Diff Today N93.9 - Abnormal uterine and vaginal bleeding, unspecified TSH reflex Free T4 Today N93.9 - Abnormal uterine and vaginal bleeding, unspecified Prolactin Today N93.9 - Abnormal uterine and vaginal bleeding, unspecified Lutenizing Hormone Today N93.9 - Abnormal uterine and vaginal bleeding, unspecified Follicle Stimulating Hormone Today N93.9 - Abnormal uterine and vaginal bleeding, unspecified Coding Level of Care Code Est Pt Level 3 (62609) Procedure Only Diagnoses Abnormal uterine bleeding (AUB) N93.9 CPT Codes Endometrial Biopsy - CPT: 77659-Tiwmyjcwqww Biopsy ([id number])
[2023-07-23 09:45] VITALS: BP 124/76; BMI 32.5
== END 2023-07-23 10:47 | disposition home or self-care (01) ==
PROVIDERS: PCP Internal Medicine; Visit Provider Obstetrics & Gynecology
DX: N93.9 Abnormal uterine and vaginal bleeding, unspecified (principal)
CPT/HCPCS: 58100; 99213

== ENCOUNTER 2023-07-23 10:53 | Outpatient (REF) | payer OTHER, SELFPAY ==
[2023-07-24 07:10] LABS: CT PCR NOT DETECTED (Not Detect.); NG PCR NOT DETECTED (Not Detect.)
== END 2023-07-23 10:54 | disposition home or self-care (01) ==
LOC: HO.LNP 10:53
PROVIDERS: Visit Provider Obstetrics & Gynecology
DX: N93.9 Abnormal uterine and vaginal bleeding, unspecified (principal); Z20.2 Contact with and (suspected) exposure to infections with a predominantly sexual mode of transmission
CPT/HCPCS: 0353U; 88305

== ENCOUNTER 2023-08-28 13:40 | Outpatient (REF) | payer OTHER, SELFPAY ==
--- NOTE | ~2023-08-28 | US_ITS ---
EXAMINATION: US PELVIS CLINICAL INFORMATION: Abnormal uterine bleeding, last menstrual period 08/18/2023. History of endometrial ablation. COMPARISON: 04/15/2023 TECHNIQUE: Ultrasound of the pelvis is performed using both transabdominal and transvaginal transducers along with Doppler. Transvaginal imaging is performed due to inadequate visualization transabdominally. FINDINGS: The uterus is anteverted, heterogeneous and measures 13.3 x 6.7 x 7.6 cm, volume 354.60 mL. Multiple fibroids are present: Anterior uterine right uterine 1.1 x 1.0 x 1.4 cm fibroid, previously 1.5 x 1.1 x 1.5 cm. Posterior uterine body 1.4 x 1.0 x 1.1 cm fibroid, previously 1.2 x 0.8 x 1.0 cm. Additional previously seen fibroids are difficult to characterize on the current exam, likely due to uterine heterogeneity and limited visualization due to bowel gas. Endometrial thickness is 1.0 cm. Visualization limited due to bowel gas and artifact on transvaginal ultrasound images. Right ovary measures 4.2 x 1.8 x 2.1 cm, volume 8.3 mL. There is a 1.9 x 1.9 x 1.9 cm right ovarian and multiple smaller simple cysts. Correlation with menstrual history recommended. Left ovary measures 2.9 x 1.8 x 1.9 cm, volume 5.2 mL and was seen only on transabdominal ultrasound images, limiting visualization. A 0.3 cm echogenic focus characteristic of a calcification within the left ovary was not identified on the prior exam. US/US pelvic and transvaginal IMPRESSION: 1. Fibroid uterus. 2. Endometrial thickness is 1.0 cm. Visualization limited due to bowel gas and artifact on transvaginal ultrasound images. 3. Right ovarian 1.9 cm simple cyst is likely physiologic. Correlation with menstrual history recommended. 4. Limited visualization of left ovary. A 0.3 cm echogenic focus characteristic of a calcification within the left ovary was not identified on the prior exam.
== END 2023-08-28 13:41 | disposition home or self-care (01) ==
LOC: HO.US 13:40
PROVIDERS: PCP Internal Medicine; Visit Provider Obstetrics & Gynecology
DX: N93.9 Abnormal uterine and vaginal bleeding, unspecified (principal)
CPT/HCPCS: 76830; 76856

== ENCOUNTER 2023-10-21 07:51 | Outpatient (AMB) | payer OTHER, SELFPAY ==
--- NOTE | 2023-10-21 08:15 | A.OFFVIS_ITS ---
Intake Vital Signs 10/21/23 08:22 Height 4 ft 11 in Weight 160 lb 14.999 oz BMI 32.5 BP 140/92 H Intake Visit Reasons: US Follow up/EMB/DO NOT RS Validation Intern Required: Yes Validation Intern Language: Assistant Activities Director Name: Ceci COMBS Information Interpreted: non-clinical & clinical Accompanied by: Self / Same As Patient Allergies No Known Allergies Allergy (Verified 10/21/23 08:25) HPI HPI Comments History of Present Illness Details The patient is presenting for follow-up to discuss the results of her abnormal uterine bleeding workup and options of treatment. The following workup was done.: H&H= 12.5/38.2 TSH, hCG, prolactin negative FSH/LH premenopausal range GC and chlamydia were negative. Endometrial biopsy pathology showed the following: Benign dyssynchronous secretory endometrium with poorly-developed and early to mid secretory glands, dense stroma, and glandular and stromal breakdown; no atypia or carcinoma Co testing was done in 04/02 was negative. Mammogram was BI-RADS 2 in 12/03. Pelvic ultrasound showed the following: The uterus is anteverted, heterogeneous and measures 13.3 x 6.7 x 7.6 cm, volume 354.60 mL. Multiple fibroids are present: Anterior uterine right uterine 1.1 x 1.0 x 1.4 cm fibroid, previously 1.5 x 1.1 x 1.5 cm. Posterior uterine body 1.4 x 1.0 x 1.1 cm fibroid, previously 1.2 x 0.8 x 1.0 cm. Additional previously seen fibroids are difficult to characterize on the current exam, likely due to uterine heterogeneity and limited visualization due to bowel gas. Endometrial thickness is 1.0 cm. Visualization limited due to bowel gas and artifact on transvaginal ultrasound images. Right ovary measures 4.2 x 1.8 x 2.1 cm, volume 8.3 mL. There is a 1.9 x 1.9 x 1.9 cm right ovarian and multiple smaller simple cysts. Correlation with menstrual history recommended. Left ovary measures 2.9 x 1.8 x 1.9 cm, volume 5.2 mL and was seen only on transabdominal ultrasound images, limiting visualization. A 0.3 cm echogenic focus characteristic of a calcification within the left ovary was not identified on the prior exam. [facility] Medical History PONV (postoperative nausea and vomiting) Tension headache Depression Iron deficiency anemia On beta uriel at home Colon cancer screening GERD (gastroesophageal reflux disease) Hypertension Lipoma of right shoulder Surgical History H/O right breast biopsy History of endometrial ablation Hx of tubal ligation Status post excision of lipoma History of bilateral breast reduction surgery Family History Mother Breast cancer Bone cancer Maternal Aunt Breast cancer Social History Alcohol intake: never Patient Tobacco Use Status: Never used Tobacco Female Reproductive History Menstrual Age of Menarche: 12 Review of Systems Const All systems reviewed & are unremarkable except as noted in HPI and below Reports as per HPI and Reports no additional complaints GI Reports no additional complaints Reports no additional complaints Assessment & Plan Assessment & Plan (1) Abnormal uterine bleeding (AUB): Comment: History of endometrial ablation Pelvic pain and myomas Code(s): N93.9 - Abnormal uterine and vaginal bleeding, unspecified Plan: Discussed with the patient the results of the work up done and options of treatment including Lysteda, BCP's, uterine artery embolization and hysterectomy. All pros, cons, risks and benefits if each option was discussed with the patient and the patient decided to go ahead with Lysteda , so a more detailed discussion re: Lysteda including mechanism of action, benefits, risks including but not limited to thrombosis and strokes, Instructions were given on how to use, 2 tablets p.o. 3 times a day day 1 up to 3-5 days of menses and to schedule a 3 months follow-up appointment. The patient verbalized understanding and agreed with the plan. (2) Myoma: Code(s): D21.9 - Benign neoplasm of connective and other soft tissue, unspecified Plan: Discussed with the patient the findings on pelvic ultrasound & the risk of myosarcoma; discussed with the patient the options of treatment including expectant management versus hysterectomy; the pros and cons, risks benefits of each approach were discussed with the patient including the fact that in cases of myosarcoma, surgical treatment can lead to early diagnosis and positively affects the prognosis; after further discussion, the patient decided to proceed with expectant management. Will repeat pelvic ultrasound periodically. Instructions given to patient to call in case any of the following occurs: pressure symptoms, abnormal uterine bleeding, pelvic pain; and to schedule a future office follow-up appointment for reassessment and to order a repeat ultrasound . All questions answered, the patient verbalized understanding and agreed with the plan . Coding Level of Care Code Est Pt Level 3 (46554) Diagnoses Abnormal uterine bleeding (AUB) N93.9 Myoma D21.9
[2023-10-21 08:22] VITALS: BP 140/92; BMI 32.5
== END 2023-10-21 08:45 | disposition home or self-care (01) ==
PROVIDERS: PCP Internal Medicine; Visit Provider Obstetrics & Gynecology
DX: N93.9 Abnormal uterine and vaginal bleeding, unspecified (principal); D21.9 Benign neoplasm of connective and other soft tissue, unspecified
CPT/HCPCS: 99213

== ENCOUNTER → 2023-10-21 07:51 | Outpatient (BNVA) | payer OTHER, SELFPAY | PROVIDERS: PCP Internal Medicine; Visit Provider Obstetrics & Gynecology ==

== ENCOUNTER 2023-12-11 08:48 | Outpatient (AMB) | payer OTHER, SELFPAY ==
--- NOTE | 2023-12-11 09:16 | AM.OFFWIN_ITS ---
Intake Vital Signs 12/11/23 09:23 Height 4 ft 11 in Weight 162 lb BMI 32.7 BP 160/80 H Blood Pressure Location Rt brachial Position Sitting Pulse 96 Pulse Source Pulse Oximeter Temp 98.8 F Temp Source Oral Pulse Oximetry (%) 98 Oxygen Delivery Method Room Air Intake Visit Reasons: EST/cough([phone]) Intake Note: Pt is here c/o on going cough, Patient Tobacco Use Status: Never used Tobacco Allergies No Known Allergies Allergy (Verified 12/11/23 09:17) Do you need a note to return to daycare/school/sports/work: No HPI HPI Comments History of Present Illness Details Pt is a 53yo F who presents with cough complaint She is bhutanese speaking 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 She said she was sick with cough, body aches, fatigue, fever/chills 2 weeks ago Symptoms improved but recently started again with cough Cough produces intermittent phlegm Some SOB worse at night with coughing No CP No current fever/chills/body aches + congestion and slight earache without ST Has been taking NyQuil at home without relief Monitors BP at home and has been high which she contributes to the cough [facility] Medical History (Updated 12/11/23 @ 09:35 by Rani Osman PA-C) PONV (postoperative nausea and vomiting) Tension headache Depression Iron deficiency anemia On beta uriel at home Colon cancer screening GERD (gastroesophageal reflux disease) Hypertension Lipoma of right shoulder Surgical History H/O right breast biopsy History of endometrial ablation Hx of tubal ligation Status post excision of lipoma History of bilateral breast reduction surgery Family History Mother Breast cancer Bone cancer Maternal Aunt Breast cancer Social History Alcohol intake: never Patient Tobacco Use Status: Never used Tobacco Female Reproductive History Menstrual Age of Menarche: 12 Review of Systems Const Denies body aches, Denies chills, Reports fatigue, Denies fever(s) and Denies headache(s) Eyes Denies blurry vision ENT Reports otalgia, Denies headache(s), Reports nasal discharge, Denies sinus pain, Denies sinus pressure and Denies sore throat Card Denies chest pain Resp Reports chest congestion, Reports cough, Denies pain on inspiration and Denies pain with cough GI Denies abdominal pain Neuro Denies headache(s) Endo Reports fatigue Physical Exam Vital Signs: Last Vital Signs Temp 98.8 F 12/11/23 09:23 Pulse 96 12/11/23 09:23 BP 160/80 H 12/11/23 09:23 Pulse Ox 98 12/11/23 09:23 Oxygen Delivery Method Room Air 12/11/23 09:23 BMI result Body Mass Index 32.7 General: Non-toxic, NAD. Speaking full sentences. Skin: Warm dry throughout Eye: EOMI HENT: Airway patent. Uvula midline. No pharyngeal erythema or edema. No LEATHER CARVER. Bilateral canals clear. TM non-erythematous, non-bulging. No TM perforation or hemotympanum noted. No sinus tenderness to palpation Respiratory: CTA bilaterally. No wheezes, rales or rhonchi Cardiac: RRR. No murmur MSK: Full ROM extremities. Neurology: A/O No aphasia or facial droop. Gait without abnormality Psych: Good mood and affect Assessment & Plan Assessment & Plan (1) Upper respiratory infection: Code(s): J06.9 - Acute upper respiratory infection, unspecified Qualifiers: URI type: unspecified viral URI Qualified Code(s): J06.9 - Acute upper respiratory infection, unspecified Plan: Patient seen and evaluated. Lungs CTA O2 stable Discussed tessalon for cough She will monitor symptoms and any fever, CP, SOB call office or go to ED for evaluation Patient gave verbal understanding and had no additional questions or concerns at time of discharge Community Service Aide used throughout entire interview and discharge All questions answered (2) Hypertension: Code(s): I10 - Essential (primary) hypertension Qualifiers: Hypertension type: primary hypertension Qualified Code(s): I10 - Essential (primary) hypertension Plan: Told about high reading today in office She will continue to monitor at home D/C NyQuil if high or other symptoms go to ED Medications: New benzonatate 150 mg PO BID-TID PRN 14 caps 0RF cough Coding Level of Care Code Est Pt Level 3 (13917) Diagnoses Viral upper respiratory tract infection J06.9 URI type: unspecified viral URI Primary hypertension I10 Hypertension type: primary hypertension
[2023-12-11 09:23] VITALS: BP 160/80; PULSE 96; TEMP 37.1; O2SAT 98; BMI 32.7
== END 2023-12-11 10:52 | disposition home or self-care (01) ==
PROVIDERS: PCP Internal Medicine; Visit Provider Physician Assistant
DX: J06.9 Acute upper respiratory infection, unspecified (principal); I10 Essential (primary) hypertension
CPT/HCPCS: 99213

== ENCOUNTER 2023-12-23 12:10 | Outpatient (REF) | payer OTHER, SELFPAY ==
[2023-12-23 13:20] LABS: MANUAL DIFF FLAG NO
[2023-12-23 13:33] LABS: Basophils Absolute Auto 0.1 X10*3/uL (0.0-0.2); Basophils Percent Auto 1.3 % (0-2); Eosinophils Absolute Auto 0.2 X10*3/uL (0.0-0.4); Eosinophils Percent Auto 2.6 % (0-4); Hematocrit 39.4 % (37.0-47.0); Hemoglobin 12.8 g/dl (12.0-16.0); Imm Gran Abs Auto 0.02 X10*3/uL (0.00-0.03); Imm Gran Pct Auto 0.3 % (0.0-0.4); Lymphocytes Percent Auto 25.3 % (20-40); Mean Corpuscular HGB Conc 32.5 g/dl (31.0-35.0); Mean Corpuscular Hemoglobin 28.1 pg (27.0-33.0); Mean Corpuscular Volume 86.6 fL (80.0-98.0); Mean Platelet Volume 10.7 fL (9.4-12.3); Monocytes Absolute Auto 0.5 X10*3/uL (0.1-1.2); Monocytes Percent Auto 5.6 % (2-11); Neutrophils Absolute Auto 5.2 x10*3/uL (2.0-8.3); Neutrophils Percent Auto 64.9 % (45-73); Platelet Count 274 X10*3/uL (160-400); Red Blood Count 4.55 X10*6/uL (4.20-5.50); Red Cell Distribution Width 14.6 % (11.0-16.0)
[2023-12-23 13:46] LABS: Alanine Aminotransferase 16 U/L (0-31); Albumin Level 4.2 g/dL (3.5-5.0); Alkaline Phosphatase 96 U/L (39-117); Anion Gap 10 (12-20); Aspartate Amino Transferase 18 U/L (5-31); Bilirubin Total 0.5 mg/dL (0.0-1.0); Blood Urea Nitrogen 8 mg/dL (9-16); Calcium 9.9 mg/dL (8.4-10.2); Carbon Dioxide 24 mmol/L (22-29); Chloride 109 mmol/L (96-108); Cholesterol 198 mg/dL (<200); Estimated Glomerular Filt Rate > 60; Glucose Random 86 mg/dL (60-115); HDL Cholesterol 50 mg/dL (>40); LDL Cholesterol Calculated 134 mg/dL (<100); Potassium 3.7 mmol/L (3.3-5.1); Sodium 139 mmol/L (135-145); Total Protein 7.9 g/dL (6.5-8.0); Triglycerides 73 mg/dL (<150)
[2023-12-23 14:03] LABS: Ferritin 15 ng/mL (10-250); Thyroid Stimulating Hormone 1.12 uIU/mL (0.32-4.0)
== END 2023-12-23 12:11 | disposition home or self-care (01) ==
LOC: HO.10HDL 12:10
PROVIDERS: Visit Provider Internal Medicine
DX: Z00.01 Encounter for general adult medical examination with abnormal findings (principal); E78.00 Pure hypercholesterolemia, unspecified; I10 Essential (primary) hypertension; M22.2X1 Patellofemoral disorders, right knee; N92.4 Excessive bleeding in the premenopausal period; R74.01 Elevation of levels of liver transaminase levels
CPT/HCPCS: 36415; 80053; 80061; 82728; 84443; 85025

== ENCOUNTER 2024-01-01 11:12 | Outpatient (REF) | payer OTHER, SELFPAY ==
--- NOTE | ~2024-01-01 | MM_ITS ---
EXAMINATION: MM SCREENING DIGITAL BREAST TOMOSYNTHESIS, BILATERAL CLINICAL INFORMATION: Screening. Asymptomatic. The patient is status post bilateral breast reduction. COMPARISON: Mammography: This study is compared with prior exams dating back to 2019. TECHNIQUE: Digital breast tomosynthesis is performed in both the craniocaudal and mediolateral oblique views along with computer-aided detection (CAD). Synthesized 2D images are generated from the tomosynthesis. FINDINGS: There are scattered areas of fibroglandular density (ACR BI-RADS breast composition Category b). There are no significant masses, abnormal calcifications, or other abnormalities. Bilateral post reduction changes are present. There is a tissue marker in the upper inner quadrant of the right breast from prior benign percutaneous biopsy. MM/MM tomosynthesis screening BI IMPRESSION: No mammographic evidence of malignancy. ASSESSMENT: BI-RADS BI-RADS 2 - Benign Findings RECOMMENDATION: Routine annual mammography screening. 1 year F/U This examination should not preclude the clinical evaluation of a suspicious palpable abnormality. This patient's information was entered into a reminder system with a target due date for their next mammogram.
== END 2024-01-01 11:13 | disposition home or self-care (01) ==
LOC: HO.MAMMO 11:12
PROVIDERS: PCP Internal Medicine; Visit Provider Internal Medicine
DX: Z12.31 Encounter for screening mammogram for malignant neoplasm of breast (principal)
CPT/HCPCS: 77063; 77067

== ENCOUNTER → 2024-01-01 11:45 | Outpatient (BNV) | payer OTHER, SELFPAY | PROVIDERS: PCP Internal Medicine; Visit Provider Radiology Diagnostic Radiology | DX: Z12.31 Encounter for screening mammogram for malignant neoplasm of breast (principal) | CPT/HCPCS: 77063; 77067 ==

== ENCOUNTER 2024-04-08 08:26 | Outpatient (REF) | payer OTHER, SELFPAY | END 2024-04-08 08:27 | disposition home or self-care (01) | LOC: HO.LNP 08:26 | PROVIDERS: Visit Provider Obstetrics & Gynecology | DX: Z13.89 Encounter for screening for other disorder (principal) ==

== ENCOUNTER 2024-04-08 08:26 | Outpatient (AMB) | payer OTHER, SELFPAY ==
--- NOTE | 2024-04-08 08:36 | MHC.OFFVIS ---
Vital Signs 04/08/24 08:51 Height 4 ft 11 in Weight 160 lb 14.999 oz BMI 32.5 BP 120/76 Intake Visit Reasons: LOCATION MAN annual exam Amusement Ride Operator Required: Yes Amusement Ride Operator Language: School Child Care Attendant Name: Ceci COMBS Information Interpreted: non-clinical & clinical Brick Washer: Brick Washer Present (Ceci COMBS) Accompanied by: Self / Same As Patient Allergies No Known Allergies Allergy (Verified 04/08/24 08:51) HPI Comments Details: Presenting for annual exam. Complaining of heavy menstrual cycles associated with passage of blood clots over the last 3 months Last Pap/HPV was negative in 04/02 Last Mammogram was BI-RADS 2 in 01/04 Last Colonoscopy was in 09/01, the recommendation was to repeat in 5 years [facility] Medical History PONV (postoperative nausea and vomiting) Tension headache Depression Iron deficiency anemia On beta uriel at home Colon cancer screening GERD (gastroesophageal reflux disease) Hypertension Lipoma of right shoulder Surgical History H/O right breast biopsy History of endometrial ablation Hx of tubal ligation Status post excision of lipoma History of bilateral breast reduction surgery Family History Mother Breast cancer Bone cancer Maternal Aunt Breast cancer Social History Alcohol intake: never Patient Tobacco Use Status: Never used Tobacco Female Reproductive History Menstrual Age of Menarche: 12 Total pregnancies: 4 Full term: 4 Number of Living Children: 4 Date of last pap smear: 04/10/23 Date of Mammogram: 01/01/24 Review of Systems Const All systems reviewed & are unremarkable except as noted in HPI and below Card Reports as per HPI Resp Reports as per HPI GI Reports as per HPI and Reports no additional complaints Reports as per HPI Physical Exam Vital Signs: Last Vital Signs BP 120/76 04/08/24 08:51 BMI result Body Mass Index 32.5 Const General: cooperative, healthy appearing and comfortable Chest Chest palpation & inspection: normal inspection of the chest and normal palpation of entire chest wall Breast/axilla inspection: normal inspection of the breasts and normal inspection of the axillae Breast/axilla palpation: normal palpation of the breasts, normal palpation of the axillae and no axillary lymphadenopathy Resp Effort & Inspection: normal respiratory effort Auscultation: clear to auscultation bilaterally Percussion: percussion normal Cardio Palpation: normal PMI Rate: regular rate Rhythm: regular rhythm Heart sounds: no murmurs and no rubs Peripheral pulses: Peripheral pulses 2+ throughout GI Inspection: Yes normal to inspection Palpation (GI): Soft to palpation, nontender, no guarding, not rigid and No hepatosplenomegaly present Percussion: Yes normal to percussion Auscultation: normal bowel sounds Rectal Exam - Female: deferred General: Yes bladder normal to palpation External Female Exam: No lesion Speculum Exam - Vagina: normal appearance of the vagina, normal palpation, normal vaginal discharge and not erythematous Speculum Exam - Cervix: normal appearance of the cervix and normal palpation Bimanual exam- vagina & uterus: normal bimanual exam, normal palpation, uterine size normal, bladder normal to palpation, consistency normal and normal palpation Bimanual Exam- Adnexa, other: normal adnexae, no masses and no tenderness Assessment & Plan Assessment & Plan (1) Well woman exam: Code(s): Z01.419 - Encounter for gynecological examination (general) (routine) without abnormal findings Category: Medical Plan: Co testing not indicated this year. Counseled the patient about the recommended dietary allowance of 1200 mg of Calcium & 600 IU of vitamin D. Instructions given the patient to schedule next screening Mammogram in 01/05. The patient was instructed to perform monthly self-breast exams and schedule annual exam in a year. All questions answered and the patient verbalized understanding. (2) Abnormal uterine bleeding (AUB): Comment: History of endometrial ablation Pelvic pain and myomas Code(s): N93.9 - Abnormal uterine and vaginal bleeding, unspecified Category: Medical Plan: GC and chlamydia taken CBC, TSH, prolactin, HCG, and pelvic ultrasound ordered. Discussed with the patient the different causes of abnormal bleeding including thyroid disorders, uterine and ovarian pathology, endometrial hyperplasia, carcinoma and other potential causes. Discussed with the patient the work up including CBC (to r/o anemia), TSH, prolactin, pelvic Ultrasound, endometrial biopsy to r/o endometrial pathology. All questions answered and the patient verbalized understanding. Instructed the patient to schedule an appointment for an endometrial biopsy in 2 weeks. Orders: Orders HCG Quantitative Today N93.9 - Abnormal uterine and vaginal bleeding, unspecified Complete Blood Count no Diff Today N93.9 - Abnormal uterine and vaginal bleeding, unspecified Prolactin Today N93.9 - Abnormal uterine and vaginal bleeding, unspecified Follicle Stimulating Hormone Today N93.9 - Abnormal uterine and vaginal bleeding, unspecified US pelvic and transvaginal Today N93.9 - Abnormal uterine and vaginal bleeding, unspecified TSH reflex Free T4 Today N93.9 - Abnormal uterine and vaginal bleeding, unspecified Lutenizing Hormone Today N93.9 - Abnormal uterine and vaginal bleeding, unspecified Coding Level of Care Code Est Pt Prev Care 40-64y(65273) Diagnoses Well woman exam Z01.419 Abnormal uterine bleeding (AUB) N93.9
[2024-04-08 08:51] VITALS: BP 120/76; BMI 32.5
== END 2024-04-08 09:14 | disposition home or self-care (01) ==
PROVIDERS: PCP Internal Medicine; Visit Provider Obstetrics & Gynecology
DX: Z01.419 Encounter for gynecological examination (general) (routine) without abnormal findings (principal); N93.9 Abnormal uterine and vaginal bleeding, unspecified
CPT/HCPCS: 99396

== ENCOUNTER 2024-04-08 09:20 | Outpatient (REF) | payer OTHER, SELFPAY ==
[2024-04-08 10:50] LABS: Hematocrit 38.3 % (37.0-47.0); Hemoglobin 12.6 g/dl (12.0-16.0); Mean Corpuscular HGB Conc 32.9 g/dl (31.0-35.0); Mean Corpuscular Volume 88.2 fL (80.0-98.0); Mean Platelet Volume 10.7 fL (9.4-12.3); Platelet Count 281 X10*3/uL (160-400); Red Blood Count 4.34 X10*6/uL (4.20-5.50); Red Cell Distribution Width 13.6 % (11.0-16.0); White Blood Count 6.5 X10*3/uL (4.8-10.8)
[2024-04-08 11:48] LABS: HCG Quantitative < 2 mIU/mL
[2024-04-08 12:18] LABS: CT PCR NOT DETECTED (Not Detect.); NG PCR NOT DETECTED (Not Detect.)
[2024-04-10 13:18] LABS: Follicle Stimulating Hormone 6.2 mIU/mL; Lutenizing Hormone 3.6 mIU/mL; Prolactin 4.9 ng/mL
== END 2024-04-08 09:21 | disposition home or self-care (01) ==
LOC: HO.LAB 09:20
PROVIDERS: PCP Internal Medicine; Visit Provider Obstetrics & Gynecology
DX: N93.9 Abnormal uterine and vaginal bleeding, unspecified (principal)
CPT/HCPCS: 0353U; 83001; 83002; 84146; 84443; 84702; 85027

== ENCOUNTER 2024-04-17 11:15 | Outpatient (REF) | payer OTHER, SELFPAY ==
--- NOTE | ~2024-04-17 | US_ITS ---
EXAMINATION: US PELVIS CLINICAL INFORMATION: Abnormal uterine bleeding. COMPARISON: None available. TECHNIQUE: Ultrasound of the pelvis is performed using both transabdominal and transvaginal transducers along with Doppler. Transvaginal imaging is performed due to inadequate visualization transabdominally. FINDINGS: Uterus: The uterus is anteverted and enlarged and heterogeneous, measuring 13.0 x 5.7 x 7.8 cm for a volume of 302 mL. The double wall endometrial thickness is 0.6 mm. The uterus is smooth in contour and has normal myometrial echogenicity. Two uterine fibroids are seen on the right measuring 1.4 x 1.0 x 1.3 cm and 1.2 x 0.7 x 0.9 cm. Adnexa: Both ovaries are visualized. There is normal color flow to the adnexa. There is no ovarian torsion. There is no pelvic ascites or fluid collection. Right ovary measures 2.0 x 1.5 x 2.0 cm for a volume of 3.1 mL. Left ovary measures 1.6 x 3.2 x 2.1 cm for a volume of 5.6 mL. US/US pelvic and transvaginal IMPRESSION: Enlarged uterus with 2 small fibroids.
== END 2024-04-17 11:16 | disposition home or self-care (01) ==
LOC: HO.US 11:15
PROVIDERS: PCP Internal Medicine; Visit Provider Obstetrics & Gynecology
DX: N93.9 Abnormal uterine and vaginal bleeding, unspecified (principal)
CPT/HCPCS: 76830; 76856

== ENCOUNTER 2024-05-11 09:20 | Outpatient (REF) | payer OTHER, SELFPAY | END 2024-05-11 09:21 | disposition home or self-care (01) | LOC: HO.LNP 09:20 | PROVIDERS: PCP Internal Medicine; Visit Provider Obstetrics & Gynecology | DX: N93.9 Abnormal uterine and vaginal bleeding, unspecified (principal) | CPT/HCPCS: 58100; 81025; 88305 ==

== ENCOUNTER 2024-05-11 09:20 | Outpatient (AMB) | payer OTHER, SELFPAY ==
[2024-05-11 09:26] VITALS: BP 142/86; BMI 32.3
--- NOTE | 2024-05-11 09:26 | A.OFFVIS_ITS ---
Vital Signs 05/11/24 09:26 Height 4 ft 11 in Weight 160 lb BMI 32.3 BP 142/86 H Blood Pressure Location Lt brachial Position Sitting Intake Visit Reasons: US follow up/EMB [employer] Medic Required: Yes [employer] Medic Language: Varnish Mixer Name: Lamar([id number]) Allergies No Known Allergies Allergy (Verified 05/11/24 09:29) HPI Comments Details: Presenting for EMB [facility] Medical History PONV (postoperative nausea and vomiting) Tension headache Depression Iron deficiency anemia On beta uriel at home Colon cancer screening GERD (gastroesophageal reflux disease) Hypertension Lipoma of right shoulder Surgical History H/O right breast biopsy History of endometrial ablation Hx of tubal ligation Status post excision of lipoma History of bilateral breast reduction surgery Family History Mother Breast cancer Bone cancer Maternal Aunt Breast cancer Social History Alcohol intake: never Patient Tobacco Use Status: Never used Tobacco Female Reproductive History Menstrual Age of Menarche: 12 Review of Systems Const All systems reviewed & are unremarkable except as noted in HPI and below Reports as per HPI and Reports no additional complaints GI Reports no additional complaints Reports no additional complaints Physical Exam Vital Signs: Last Vital Signs BP 142/86 H 05/11/24 09:26 BMI result Body Mass Index 32.3 Office Procedures Endometrial Biopsy Details: The patient was counseled regarding the indication and benefits of endometrial sampling to rule out endometrial pathology including not limited to endometrial hyperplasia or endometrial cancer and others; The alternatives (Either do nothing vs. hysteroscopy D&C) & the risks were discussed with the patient including but not limited: pain, uterine perforation, bleeding, infection, possible injury to bladder, bowel, ureter, possible need for blood transfusion with all its possible risks. The patient verbalized understanding all questions answered and signed consent. Urine test done in the office was negative The patient was placed into the dorsal lithotomy position; a speculum was inserted in the vagina. Using aseptic technique for the procedure, the cervix was cleansed with Betadine. The anterior lip of the cervix was grasped with a single tooth tenaculum. The uterus was sounded to 7 cm with a 4 mm Pipelle was used. Tissues samples were obtained and placed in formalin, in a patient labeled container and sent to the pathology department. At the end of the procedure, there was minimal bleeding noted The patient tolerated the procedure well and was discharged in good condition with the following instructions: Nothing in the vagina until the bleeding stops. No sex until the bleeding stops, to call if any of the following occurs: fever (>100.4), flu-like symptoms, abdominal pain, heavy bleeding, four smelling vaginal discharge. The patient was instructed to schedule a Follow up appointment in 2 weeks to discuss pathology results of the biopsy and treatment options. This note was generated with a voice recognition program. Some errors may have been overlooked during the review of this note. Sometimes these errors may affect the content or meaning of a given sentence. [id number] Biopsy Results AMB Test Urine AMB Test Urine Negative Last Edit by Rani Riley CMA on 05/11/24 09:36 Results Reviewed Results Reviewed: Laboratory Last Values Tst Clinic Negative 05/11/24 09:36 Assessment & Plan Assessment & Plan (1) Abnormal uterine bleeding (AUB): Comment: History of endometrial ablation Pelvic pain and myomas Code(s): N93.9 - Abnormal uterine and vaginal bleeding, unspecified Category: Medical Plan: EMB done, see procedure note Orders: Orders AMB HCG Urine Test Today Z32.02 - Encounter for test, result negative Surgical Today N93.9 - Abnormal uterine and vaginal bleeding, unspecified AMB Endometrial Biopsy Today N93.9 - Abnormal uterine and vaginal bleeding, unspecified Coding Level of Care Code Procedure Only Diagnoses Abnormal uterine bleeding (AUB) N93.9 CPT Codes Endometrial Biopsy - CPT: 59056-[id number] Biopsy ([id number])
== END 2024-05-11 09:57 | disposition home or self-care (01) ==
PROVIDERS: PCP Internal Medicine; Visit Provider Obstetrics & Gynecology
DX: N93.9 Abnormal uterine and vaginal bleeding, unspecified (principal); Z32.02 Encounter for pregnancy test, result negative
CPT/HCPCS: 58100

== ENCOUNTER 2024-06-10 07:41 | Outpatient (AMB) | payer OTHER, SELFPAY ==
[2024-06-10 07:42] VITALS: BP 160/92; BMI 32.1
--- NOTE | 2024-06-10 07:42 | A.OFFVIS_ITS ---
Vital Signs 06/10/24 07:42 Height 4 ft 11 in Weight 158 lb 11.725 oz BMI 32.1 BP 160/92 H Intake Visit Reasons: emb follow up Inspector Fabric Required: Yes Inspector Fabric Language: Senior Electrical Estimator Services: Inspector Fabric Present (in person) Inspector Fabric Name: Ceci COMBS Information Interpreted: non-clinical & clinical Accompanied by: Self / Same As Patient Allergies No Known Allergies Allergy (Verified 06/10/24 07:45) Is last menstrual period known: Yes Last menstrual period: 06/06/24 HPI Comments Details: The patient is presenting for follow-up to discuss the results of her abnormal uterine bleeding workup and options of treatment. The following workup was done.: H&H= 12.6/38.3 TSH, prolactin, hCG, GC and chlamydia were negative. FSH/LH 6.2/3.6 Endometrial biopsy pathology showed the following: - Superficial fragments of inactive endometrium. - Fragments of benign endocervical mucosa with squamous metaplasia. - No atypia or hyperplasia identified Co testing was done in 04/02 was negative. Mammogram was done few months ago was BI-RADS 2 Pelvic ultrasound showed the following: Uterus: The uterus is anteverted and enlarged and heterogeneous, measuring 13.0 x 5.7 x 7.8 cm for a volume of 302 mL. The double wall endometrial thickness is 0.6 mm. The uterus is smooth in contour and has normal myometrial echogenicity. Two uterine fibroids are seen on the right measuring 1.4 x 1.0 x 1.3 cm and 1.2 x 0.7 x 0.9 cm. Adnexa: Both ovaries are visualized. There is normal color flow to the adnexa. There is no ovarian torsion. There is no pelvic ascites or fluid collection. Right ovary measures 2.0 x 1.5 x 2.0 cm for a volume of 3.1 mL. Left ovary measures 1.6 x 3.2 x 2.1 cm for a volume of 5.6 mL. The patient tried Lysteda and had endometrial ablation but still having heavy irregular menstrual cycles associated with passage of blood clots and cramping [facility] Medical History PONV (postoperative nausea and vomiting) Tension headache Depression Iron deficiency anemia On beta uriel at home Colon cancer screening GERD (gastroesophageal reflux disease) Hypertension Lipoma of right shoulder Surgical History H/O right breast biopsy History of endometrial ablation Hx of tubal ligation Status post excision of lipoma History of bilateral breast reduction surgery Family History Mother Breast cancer Bone cancer Maternal Aunt Breast cancer Social History Alcohol intake: never Patient Tobacco Use Status: Never used Tobacco Female Reproductive History Menstrual Age of Menarche: 12 Date of last menstrual period: 06/06/24 Review of Systems Const All systems reviewed & are unremarkable except as noted in HPI and below Reports as per HPI and Reports no additional complaints GI Reports no additional complaints Reports no additional complaints Physical Exam Vital Signs: Last Vital Signs BP 160/92 H 06/10/24 07:42 BMI result Body Mass Index 32.1 Assessment & Plan Assessment & Plan (1) Abnormal uterine bleeding (AUB): Comment: History of endometrial ablation Myomas Code(s): N93.9 - Abnormal uterine and vaginal bleeding, unspecified Category: Medical Plan: Discussed with the patient the results of the work up done and options of treatment including medical options and hysterectomy. All pros, cons, risks and benefits if each option was discussed with the patient and the patient decided to go ahead with definitive surgical treatment. Discussed with the patient the different types of hysterectomies including, vaginal, laparoscopic assisted vaginal, robotic assisted laparoscopic,& abdominal with BSO. All pros, cons, r/b of each approach were discussed the patient including evidence that morbidity is less and recovery is shorter with minimally invasive approaches to hysterectomy. Discussed with the patient the lack of availability of the robot DaVinci robot and/or minimally invasive motor vehicles supervisor specialist at [facility]. The patient will be referred to minimally invasive secure software assessor at [facility]. All questions answered, the patient verbalized under Instructed the patient to call our office back in case a referral appointment is not scheduled, missed or canceled so that we will assist on rescheduling another appointment, the patient verbalized understanding agreed with the plan. Coding Level of Care Code Est Pt Level 3 (99111) Diagnoses Abnormal uterine bleeding (AUB) N93.9
== END 2024-06-10 08:44 | disposition home or self-care (01) ==
PROVIDERS: PCP Internal Medicine; Visit Provider Obstetrics & Gynecology
DX: N93.9 Abnormal uterine and vaginal bleeding, unspecified (principal)
CPT/HCPCS: 99213

== ENCOUNTER → 2024-06-10 07:41 | Outpatient (BNVA) | payer OTHER, SELFPAY | PROVIDERS: PCP Internal Medicine; Visit Provider Obstetrics & Gynecology ==

== ENCOUNTER 2024-08-17 08:06 | Outpatient (AMB) | payer OTHER, SELFPAY ==
[2024-08-17 08:26] VITALS: BP 140/84; PULSE 72; O2SAT 98; BMI 33.1
--- NOTE | 2024-08-17 08:26 | AM.OFFWIN_ITS ---
Intake Vital Signs 08/17/24 08:26 Height 4 ft 11 in Weight 164 lb BMI 33.1 BP 140/84 H Blood Pressure Location Rt brachial Position Sitting Pulse 72 Pulse Source Pulse Oximeter Pulse Oximetry (%) 98 Oxygen Delivery Method Room Air Intake Visit Reasons: EP-chest pain and pressure Intake Note: Patient here for chest pressure that started yesterday. Patient Tobacco Use Status: Never used Tobacco Allergies No Known Allergies Allergy (Verified 08/17/24 08:27) Do you need a note to return to daycare/school/sports/work: No HPI EP-chest pain and pressure HPI Details This note is constructed using voice recognition software. While every effort has been made to ensure accuracy, bioinformatics scientist errors may have been included. The patient is a 54 year old female who presents to the clinic today with midsternal chest pain and pressure since yesterday. She describes the pain to feel more like a pressure on her chest, and burning sensation. The pain is constant. Nothing seems to make it better, nothing seems to make it worse. She has not tried anything to improve it. She denies shortness of breath, diaphoresis, jaw pain, dizziness, lightheadedness, or doing anything prior to the event to exacerbate it. She does report that her left arm feels heavy. The symptom onset was when she was at rest doing nothing. [facility] Medical History PONV (postoperative nausea and vomiting) Tension headache Depression Iron deficiency anemia On beta uriel at home Colon cancer screening GERD (gastroesophageal reflux disease) Hypertension Lipoma of right shoulder Surgical History H/O right breast biopsy History of endometrial ablation Hx of tubal ligation Status post excision of lipoma History of bilateral breast reduction surgery Family History Mother Breast cancer Bone cancer Maternal Aunt Breast cancer Social History Alcohol intake: never Patient Tobacco Use Status: Never used Tobacco Female Reproductive History Menstrual Age of Menarche: 12 Review of Systems Const All systems reviewed & are unremarkable except as noted in HPI and below Physical Exam Vital Signs: Last Vital Signs Pulse 72 08/17/24 08:26 BP 140/84 H 08/17/24 08:26 Pulse Ox 98 08/17/24 08:26 Oxygen Delivery Method Room Air 08/17/24 08:26 BMI result Body Mass Index 33.1 Const General: cooperative, healthy appearing, comfortable, no acute distress and alert Orientation/consciousness: patient oriented x3 Limitations: no limitations Neck Neck: Yes normal visual inspection, Yes full ROM and Yes no lymphadenopathy Resp Effort & Inspection: normal respiratory effort and able to speak in complete sentences Auscultation: clear to auscultation bilaterally Cardio Jugular venous distension: no JVD Palpation: normal PMI Rate: regular rate Heart sounds: S1 normal heart sound present, S2 normal heart sound present, no click, no gallops, no murmurs and no rubs GI Inspection: Yes normal to inspection Palpation (GI): Soft to palpation and nontender Percussion: Yes normal to percussion Auscultation: normal bowel sounds Skin General skin exam: no rashes or lesions noted, elasticity normal and turgor normal Neuro General: patient oriented x3 Psych Appearance: grossly normal Mental Status: mental status grossly normal Speech and movement: Normal speech and movement present Affect: normal affect Results Reviewed Results Reviewed: EKG Assessment & Plan Assessment & Plan (1) Chest pain: Code(s): R07.9 - Chest pain, unspecified Qualifiers: Chest pain type: unspecified Qualified Code(s): R07.9 - Chest pain, unspecified Plan: EKG obtained in office appears normal sinus rhythm. Advised patient to be evaluated in the emergency room as we are unable to determine the source of her chest pain, which she has declined EMS transportation to the ER. Additionally we discussed that this may be a symptom of acid reflux, and she will try a Tums, however she will present to the emergency room should her pain persist. I reviewed with her the importance of urgent evaluation given the lack of identifying a source of her chest pain. Plan See above for full details and plan. Orders: Orders AMB EKG-In Office Today R07.9 - Chest pain, unspecified Coding Level of Care Code Est Pt Level 4 (02133) Diagnoses Chest pain, unspecified type R07.9 Chest pain type: unspecified
== END 2024-08-17 09:04 | disposition home or self-care (01) ==
PROVIDERS: PCP Internal Medicine; Visit Provider Registered Nurse
DX: R07.9 Chest pain, unspecified (principal)

== ENCOUNTER → 2024-08-17 08:06 | Outpatient (BNVA) | payer OTHER, SELFPAY | PROVIDERS: PCP Internal Medicine; Visit Provider Registered Nurse | DX: R07.9 Chest pain, unspecified (principal) | CPT/HCPCS: 93005 ==

== ENCOUNTER 2024-08-20 11:49 | Outpatient (REF) | payer OTHER, SELFPAY ==
[2024-08-20 13:08] LABS: MANUAL DIFF FLAG NO
[2024-08-20 13:13] LABS: Basophils Absolute Auto 0.1 X10*3/uL (0.0-0.2); Eosinophils Absolute Auto 0.3 X10*3/uL (0.0-0.4); Eosinophils Percent Auto 3.7 % (0-4); Hematocrit 37.7 % (37.0-47.0); Hemoglobin 12.4 g/dl (12.0-16.0); Imm Gran Abs Auto 0.02 X10*3/uL (0.00-0.03); Imm Gran Pct Auto 0.2 % (0.0-0.4); Lymphocytes Percent Auto 24.8 % (20-40); Mean Corpuscular HGB Conc 32.9 g/dl (31.0-35.0); Mean Corpuscular Hemoglobin 28.2 pg (27.0-33.0); Mean Corpuscular Volume 85.9 fL (80.0-98.0); Mean Platelet Volume 10.6 fL (9.4-12.3); Monocytes Absolute Auto 0.5 X10*3/uL (0.1-1.2); Monocytes Percent Auto 6.1 % (2-11); Neutrophils Absolute Auto 5.3 x10*3/uL (2.0-8.3); Neutrophils Percent Auto 64.2 % (45-73); Platelet Count 276 X10*3/uL (160-400); Red Blood Count 4.39 X10*6/uL (4.20-5.50); Red Cell Distribution Width 14.4 % (11.0-16.0); White Blood Count 8.2 X10*3/uL (4.8-10.8)
[2024-08-20 13:36] LABS: Alanine Aminotransferase 26 U/L (0-31); Albumin Level 4.1 g/dL (3.5-5.0); Alkaline Phosphatase 85 U/L (39-117); Anion Gap 9 (12-20); Aspartate Amino Transferase 22 U/L (5-31); Bilirubin Total 0.7 mg/dL (0.0-1.0); Blood Urea Nitrogen 10 mg/dL (9-16); Calcium 10.4 mg/dL (8.4-10.2); Carbon Dioxide 27 mmol/L (22-29); Chloride 106 mmol/L (96-108); Cholesterol 181 mg/dL (<200); Estimated Glomerular Filt Rate > 60; Glucose Random 101 mg/dL (60-115); HDL Cholesterol 50 mg/dL (>40); LDL Cholesterol Calculated 112 mg/dL (<100); Potassium 3.8 mmol/L (3.3-5.1); Sodium 138 mmol/L (135-145); Total Protein 7.4 g/dL (6.5-8.0); Triglycerides 97 mg/dL (<150)
[2024-08-20 13:37] LABS: Troponin-I High Sensitivity < 2.7 ng/L (<3.5-17.0)
[2024-08-20 13:50] LABS: Ferritin 21 ng/mL (10-250)
== END 2024-08-20 11:50 | disposition home or self-care (01) ==
LOC: HO.10HDL 11:49
PROVIDERS: Visit Provider Internal Medicine
DX: E78.00 Pure hypercholesterolemia, unspecified (principal); N95.0 Postmenopausal bleeding; R07.89 Other chest pain; R74.01 Elevation of levels of liver transaminase levels
CPT/HCPCS: 36415; 80053; 80061; 82728; 84484; 85025

== ENCOUNTER 2024-12-04 09:17 | Outpatient (REF) | payer OTHER, SELFPAY ==
[2024-12-04 09:40] LABS: MANUAL DIFF FLAG NO
[2024-12-04 10:47] LABS: Basophils Absolute Auto 0.1 X10*3/uL (0.0-0.2); Basophils Percent Auto 1.1 % (0-2); Eosinophils Absolute Auto 0.2 X10*3/uL (0.0-0.4); Eosinophils Percent Auto 2.8 % (0-4); Hematocrit 37.5 % (37.0-47.0); Hemoglobin 12.1 g/dl (12.0-16.0); Imm Gran Abs Auto 0.02 X10*3/uL (0.00-0.03); Imm Gran Pct Auto 0.3 % (0.0-0.4); Lymphocytes Absolute Auto 1.9 X10*3/uL (1.2-4.9); Lymphocytes Percent Auto 25.9 % (20-40); Mean Corpuscular HGB Conc 32.3 g/dl (31.0-35.0); Mean Corpuscular Hemoglobin 28.7 pg (27.0-33.0); Mean Corpuscular Volume 88.9 fL (80.0-98.0); Mean Platelet Volume 10.4 fL (9.4-12.3); Monocytes Absolute Auto 0.5 X10*3/uL (0.1-1.2); Monocytes Percent Auto 6.9 % (2-11); Neutrophils Absolute Auto 4.5 x10*3/uL (2.0-8.3); Platelet Count 318 X10*3/uL (160-400); Red Blood Count 4.22 X10*6/uL (4.20-5.50); Red Cell Distribution Width 13.7 % (11.0-16.0); White Blood Count 7.2 X10*3/uL (4.8-10.8)
[2024-12-04 11:56] LABS: Parathyroid Hormone Intact 123.8 pg/mL (8.7-77.1)
[2024-12-04 13:04] LABS: Alanine Aminotransferase 27 U/L (0-31); Albumin Level 3.9 g/dL (3.5-5.0); Anion Gap 9 (12-20); Aspartate Amino Transferase 29 U/L (5-31); Bilirubin Total 0.5 mg/dL (0.0-1.0); Blood Urea Nitrogen 14 mg/dL (9-16); Calcium 9.8 mg/dL (8.4-10.2); Carbon Dioxide 27 mmol/L (22-29); Chloride 109 mmol/L (96-108); Cholesterol 172 mg/dL (<200); Estimated Glomerular Filt Rate > 60; Glucose Random 91 mg/dL (60-115); HDL Cholesterol 50 mg/dL (>40); LDL Cholesterol Calculated 96 mg/dL (<100); Phosphorus 1.7 mg/dL (2.7-4.5); Potassium 4.4 mmol/L (3.3-5.1); Sodium 141 mmol/L (135-145); Total Protein 7.5 g/dL (6.5-8.0); Triglycerides 130 mg/dL (<150)
[2024-12-04 13:21] LABS: Vitamin D 25-OH Total 15.9 ng/mL (>30)
[2024-12-04 14:20] LABS: Alkaline Phosphatase 85 U/L (39-117)
== END 2024-12-04 09:18 | disposition home or self-care (01) ==
LOC: HO.LAB 09:17
PROVIDERS: PCP Internal Medicine; Visit Provider Internal Medicine
DX: E78.00 Pure hypercholesterolemia, unspecified (principal); E83.52 Hypercalcemia; I10 Essential (primary) hypertension; N95.0 Postmenopausal bleeding
CPT/HCPCS: 36415; 80053; 80061; 82306; 83970; 84100; 85025

== ENCOUNTER → 2024-12-16 12:44 | Outpatient (BNVA) | payer OTHER, SELFPAY | PROVIDERS: PCP Internal Medicine; Visit Provider Internal Medicine | DX: I10 Essential (primary) hypertension (principal); E66.01 Morbid (severe) obesity due to excess calories; R07.2 Precordial pain; R06.02 Shortness of breath; I25.10 Atherosclerotic heart disease of native coronary artery without angina pectoris; I70.1 Atherosclerosis of renal artery; Z68.32 Body mass index [BMI] 32.0-32.9, adult | CPT/HCPCS: 93005 ==

== ENCOUNTER → 2024-12-21 13:52 | Outpatient (REF) | payer OTHER, SELFPAY | LOC: HO.CARD 13:52 | PROVIDERS: Visit Provider Internal Medicine | DX: R06.02 Shortness of breath (principal) | CPT/HCPCS: 93306 ==

== ENCOUNTER → 2024-12-21 13:56 | Outpatient (BNV) | payer OTHER, SELFPAY | PROVIDERS: PCP Internal Medicine; Visit Provider Internal Medicine Cardiovascular Disease | DX: R06.02 Shortness of breath (principal); R93.1 Abnormal findings on diagnostic imaging of heart and coronary circulation | CPT/HCPCS: 93306 ==

== ENCOUNTER 2025-01-19 08:39 | Outpatient (REF) | payer OTHER, SELFPAY ==
--- NOTE | ~2025-01-19 | US_ITS ---
EXAMINATION: Ultrasound renal Doppler. CLINICAL INFORMATION: Atherosclerosis, renal artery. COMPARISON: No priors. Correlated to CT dated July 13, 2020. TECHNIQUE: Spectral Doppler analysis: Right Kidney: -Peak systolic velocity in the proximal right renal artery = 130 cm/s. Normal waveforms. -Peak systolic velocity in the mid right renal artery = 136 cm/s. Normal waveforms. -Peak systolic velocity in the distal right renal artery = 90 cm/s. Normal waveforms. -Patent right renal vein. -Upper pole interlobar artery resistive index of 0.6. -Midpole interlobar artery resistive index of 0.6. -Lower pole interlobar artery resistive index of 0.57. RAR right = 1.45 Left Kidney: -Peak systolic velocity in the proximal left renal artery = 142 cm/s. Normal waveforms. -Peak systolic velocity in the mid left renal artery = 87 cm/s. Normal waveforms. -Peak systolic velocity in the distal left renal artery = 112 cm/s. Normal waveforms. -Patent left renal vein. -Upper pole interlobar artery resistive index of 0.8. -Mid pole interlobar artery resistive index of 0.63. -lower pole interlobar artery resistive index of 0.58. RAR left = 1.52 Aorta: -Peak systolic velocity = 94 cm/s. US/US renal doppler IMPRESSION: No renal artery stenosis by ultrasound criteria. Electronically signed by: Estevan Jessica MD 01/19/2025 02:07 PM EDT
--- NOTE | ~2025-01-19 | US_ITS ---
EXAMINATION: Ultrasound renal Doppler. CLINICAL INFORMATION: Atherosclerosis, renal artery. COMPARISON: No priors. Correlated to CT dated July 13, 2020. TECHNIQUE: Spectral Doppler analysis: Right Kidney: -Peak systolic velocity in the proximal right renal artery = 130 cm/s. Normal waveforms. -Peak systolic velocity in the mid right renal artery = 136 cm/s. Normal waveforms. -Peak systolic velocity in the distal right renal artery = 90 cm/s. Normal waveforms. -Patent right renal vein. -Upper pole interlobar artery resistive index of 0.6. -Midpole interlobar artery resistive index of 0.6. -Lower pole interlobar artery resistive index of 0.57. RAR right = 1.45 Left Kidney: -Peak systolic velocity in the proximal left renal artery = 142 cm/s. Normal waveforms. -Peak systolic velocity in the mid left renal artery = 87 cm/s. Normal waveforms. -Peak systolic velocity in the distal left renal artery = 112 cm/s. Normal waveforms. -Patent left renal vein. -Upper pole interlobar artery resistive index of 0.8. -Mid pole interlobar artery resistive index of 0.63. -lower pole interlobar artery resistive index of 0.58. RAR left = 1.52 Aorta: -Peak systolic velocity = 94 cm/s. US/US renal BI IMPRESSION: No renal artery stenosis by ultrasound criteria. Electronically signed by: Estevan Jessica MD 01/19/2025 02:07 PM EDT
--- OUTSIDE RECORDS SUMMARY | 2025-01-19 09:28 | XMS_ITS | Clinical Summary ---
Author Organization [facility] Address [address] [place] [address] Phone Care Team Providers Care Telemetry Tech Name Role Phone Kelsey Whyte MD Primary Care Provider Allergies No known active allergies Medications losartan-hydroCH LOROthiazide (HYZAAR) 100-25 MG per tablet Take 1 tablet by mouth 1 (one) time each day 11/27/2022 Active metoprolol succinate XL (TOPROL-XL) 100 MG 24 hr tablet Take 100 mg by mouth 1 (one) time each day 11/30/2022 Active rosuvastatin (CRESTOR) 20 MG tablet Take 20 mg by mouth 1 (one) time each day 11/29/2022 Active NIFEdipine XL (PROCARDIA XL) 60 MG 24 hr tablet Take 1 tablet (60 mg total) by mouth 1 (one) time each day Do not crush, chew, or split. 30 tablet 11 03/05/2023 Active Active Problems Problem Noted Date Diagnosed Date Asthma 03/27/2023 Fibromyalgia 03/27/2023 Gastroesophageal reflux disease 03/27/2023 Iron deficiency anemia 03/27/2023 Mastodynia 03/27/2023 Uterine leiomyoma 03/27/2023 Anemia of chronic disease 12/12/2022 Benign essential hypertension 12/12/2022 Hypertension 12/12/2022 Renal stone 12/12/2022 Family History Medical History Relation Comments Hypertension Father Heart disease Father's Brother Cancer Mother Cancer Mother's Sister Relation Status Comments Father Alive Father's Brother Mother Alive Mother's Sister Social History Tobacco Use Types Packs/Day Years Used Date Smoking Tobacco: Never Smokeless Tobacco: Never Tobacco Cessation:Counseling Given: Not Answered Alcohol Use Standard Drinks/Week Comments Yes 0 (1 standard drink = 0.6 oz pur e alcohol) Comments Unknown Sex and Gender Information Value Date Recorded Sex Assigned at Not on file Legal Sex Female 4:52 PM EST Gender Identity Not on file Sexual Orientation Not on file Last Filed Vital Signs Vital Sign Reading Time Taken Comments Blood Pressure 110/78 03/27/2023 1:34 PM EDT Pulse - - Temperature - - Respiratory Rate - - Oxygen Saturation - - Inhaled Oxygen Concentration - - Weight 73.2 kg (161 lb 6.4 oz) 03/27/2023 1:34 P M EDT Height - - Body Mass Index - - Plan of Treatment Health Maintenance Due Date Last Done Comments Breast Cancer Screening 1971 Pneumococcal Vaccine: Pediat rics (0 to 5 Years) and At-Risk Patients (6 to 64 Years) (1 of 2 - PCV) 1977 Hepatitis B Vaccine (1 of 3 - 19+ 3-dose series) 07/11 Colorectal Cancer Screening: Annual FOBT 2020 Colorectal Cancer Screening: Colonoscopy 2020 Colorectal Cancer Screening: Sigmoidoscopy 2020 Influenza Vaccine (#1) 2024 Insurance Care Teams Telemetry Tech Relationship Specialty Start Date End Date Kelsey Whyte MD [employer] [address] PCP - General 11/21/20
--- OUTSIDE RECORDS SUMMARY | 2025-01-19 09:28 | XMS_ITS | Encounter Summary ---
Author Organization [facility] Address [address] [place] [address] Phone Care Team Providers Care Cushion Stuffer Name Role Phone Kelsey Whyte MD Primary Care Provider Encounter Details Date Type Department Care Team (Late st Contact Info) Description 12/19/2022 Documentation Only [facility] [address] [place] [address] Maude Pearson MA Social History Tobacco Use Types Packs/Day Years Used Date Smoking Tobacco: Never Smokeless Tobacco: Never Alcohol Use Standard Drinks/Week Comments Yes 0 (1 standard drink = 0.6 oz pur e alcohol) Comments Unknown Sex and Gender Information Value Date Recorded Sex Assigned at Not on file Legal Sex Female 4:52 PM EST Gender Identity Not on file Sexual Orientation Not on file documented as of this encounter Plan of Treatment Not on file documented as of this encounter Visit Diagnoses Not on filedocumented in this encounter Care Teams Cushion Stuffer Relationship Specialty Start Date End Date Kelsey Whyte MD [address] [facility] [address] [place] [address] PCP - General 11/21/20 documented as of this encounter
--- OUTSIDE RECORDS SUMMARY | 2025-01-19 09:28 | XMS_ITS | Continuity of Care Document ---
Author Organization [facility] ter Address [address] [place] [id number]- Care Team Providers Care Geosciences Professor Name Role Phone Kelsey Whyte MD Primary Care Physician [phone] Encounter [facility] [id number] Date(s): 12/28/24 - 12/28/24 [facility] [address] [place] [address] Discharge Disposition: A-D/C Home Attending Physician: Quan (POLICEMAN) Jordi ALMENDAREZ Admitting Physician: Quan DuvallPOLICEMAN) Jordi ALMENDAREZ Referring Physician: Quan DuvallPOLICEMAN) Jordi ALMENDAREZ Encounter Type: Disch Daystay Allergies, Adverse Reactions, Alerts No Known Allergies Medications amLODIPine 10 mg oral tablet 10 mg, 1, tablet, By Mouth, Daily, # 30 tablet, Refills 0, Maintenance, 10/28/24 9:53:00 AM EST, Partial fill upon patient request if the prescription is for a schedule II opioid drug. Start Date: 10/28/24 Status: Ordered Quantity: 30.0 Unit: tablet Repeat number: 1 ibuprofen 600 mg oral tablet 600 mg, 1, tablet, By Mouth, 4 times a day, PRN, # 40 tablet, Refills 0, Tot. Refills 0, Maintenance, for pain, 12/28/24 11:28:00 AM EST, Route to Pharmacy Electronically, [facility]/pharmacy #[id number], Partial fill upon patient request if the prescription is for a schedule II opioid drug., 74.8, kg, 12/28/24 6:23:00 EST, Dry Weight Start Date: 12/28/24 Status: Ordered Quantity: 40.0 Unit: tablet Repeat number: 1 losartan 100 mg oral tablet 1 tablet = 100 mg, By Mouth, Daily, # 90 tablet, 0 Refills, Maintenance, 08/12/24 9:29:00 AM EDT, Tablet, Partial fill upon patient request if the prescription is for a schedule II opioid drug. Start Date: 08/12/24 Status: Ordered Quantity: 90.0 Unit: tablet Repeat number: 1 metoprolol 100 mg oral tablet, extended release 100 mg, 1, tablet, By Mouth, Daily, # 30 tablet, Refills 0, Maintenance, 10/28/24 9:54:00 AM EST, Partial fill upon patient request if the prescription is for a schedule II opioid drug. Start Date: 10/28/24 Status: Ordered Quantity: 30.0 Unit: tablet Repeat number: 1 MiraLax oral powder for reconstitution = 17 Gm, By Mouth, Daily, dissolve in water or juice, # 255 Gm, 0 Refills, Maintenance, 12/28/24 11:28:00 AM EST, REC Powder, [facility]/pharmacy #[id number], Partial fill upon patient request if the prescription is for a schedule II opioid drug., 17 Gm By Mouth Daily,Instr:dissolve in water or juice, 74.8, kg, 12/28/24 6:23:00 EST, Dry Weight Start Date: 12/28/24 Status: Ordered Quantity: 255.0 Unit: g Repeat number: 1 naproxen 250 mg oral tablet 250 mg, 1, tablet, By Mouth, 2 times a day, PRN, # 20 tablet, Refills 0, Maintenance, for pain, 08/12/24 9:30:00 AM EDT, Partial fill upon patient request if the prescription is for a schedule II opioid drug. Start Date: 08/12/24 Status: Ordered Quantity: 20.0 Unit: tablet Repeat number: 1 nitroglycerin 0.3 mg sublingual tablet 1 tablet = 0.3 mg, Sublingual, Every 5 minutes, PRN as needed for chest pain, not to exceed 3 doses/15 min--if pain persists, seek medical attention, # 100 tablet, 0 Refills, Maintenance, 10/28/24 9:52:00 AM EST, Tablet, Partial fill upon patient request if the prescription is for a schedule II opioid drug. Start Date: 10/28/24 Status: Ordered Quantity: 100.0 Unit: tablet Repeat number: 1 omeprazole 20 mg oral delayed release tablet 1 tablet = 20 mg, By Mouth, Daily, # 60 tablet, 0 Refills, Maintenance, 10/28/24 9:53:00 AM EST, ECTablet, Partial fill upon patient request if the prescription is for a schedule II opioid drug. Start Date: 10/28/24 Status: Ordered Quantity: 60.0 Unit: tablet Repeat number: 1 oxyCODONE 5 mg oral tablet 5 mg, 1, tablet, By Mouth, Every 6 hours, PRN, # 12 tablet, Refills 0, Tot. Refills 0, Maintenance,for pain, 12/28/24 11:28:00 AM EST, Route to Pharmacy Electronically, [facility]/pharmacy #[id number], Partial fill upon patient request if the prescription is for a schedule II opioid drug., 74.8, kg, 12/28/24 6:23:00 EST, Dry Weight Start Date: 12/28/24 Status: Ordered Quantity: 12.0 Unit: tablet Repeat number: 1 Oxycodone 5mg Oral Tablet (PACU ONLY) 5 mg, Tablet, By Mouth, Once, in PACU ONLY, PRN for Pain , Moderate, Routine, 12/28/24 8:49:00 AM EST Start Date: 12/28/24 Stop Date: 12/28/24 Status: Completed Repeat number: 1 simethicone 80 mg oral tablet, chewable 80 mg, 1, tablet, Chew, 4 times a day, PRN, # 12 tablet, Refills 0, Tot. Refills 0, Maintenance, asneeded for gas, 12/28/24 11:28:00 AM EST, Route to Pharmacy Electronically, [facility]/pharmacy #[id number], Partial fill upon patient request if the prescription is for a schedule II opioid drug., 74.8, kg, 12/28/24 6:23:00 EST, Dry Weight Start Date: 12/28/24 Status: Ordered Quantity: 12.0 Unit: tablet Repeat number: 1 spironolactone 50 mg oral tablet 1 tablet = 50 mg, By Mouth, Daily, # 60 tablet, 0 Refills, Maintenance, 10/28/24 9:53:00 AM EST, Tablet, Partial fill upon patient request if the prescription is for a schedule II opioid drug. Start Date: 10/28/24 Status: Ordered Quantity: 60.0 Unit: tablet Repeat number: 1 Tylenol 325 mg oral tablet 650 mg, 2, tablet, By Mouth, Every 4 hours, PRN, # 50 tablet, Refills 0, Tot. Refills 0, Maintenance, for pain, 12/28/24 11:28:00 AM EST, Route to Pharmacy Electronically, [facility]/pharmacy #[id number], Partial fill upon patient request if the prescription is for a schedule II opioid drug., 74.8, kg, 12/28/24 6:23:00 EST, Dry Weight Start Date: 12/28/24 Status: Ordered Quantity: 50.0 Unit: tablet Repeat number: 1 Problem List Condition Confirmation Course Effective Dates Status Health St atus Informant Abnormal uterine bleeding (AUB) Confirmed Active Hypertension Confirmed Active Uses Macedonian as primary spoken language Confirmed Active Pain pelvic Confirmed Active Vital Signs Most recent to oldest [Reference Range]: 1 2 3 Weight 74.8 kg (12/28/24 6:23 AM) Oxygen Saturation [94-100 %] 92 % *L* (12/28/24 1:31 PM) 92 % *L* (12/28/24 1:30 PM) 100 % (12/28/24 12:30 PM) Pulse Rate [55-90 bpm] 90 bpm (12/28/24 6:23 AM) Blood Pressure [90-138/55-84 mm Hg] 121/63mm Hg (12/28/24 1:31 PM) 110/65mm Hg (12/28/24 12:15 PM) 123/71mm Hg (12/28/24 12:00 PM) Respiratory Rate [16-30 br/min] 25 br/min (12/28/24 1:31 PM) 19 br/min (12/28/24 1:30 PM) 24 br/min (12/28/24 12:24 PM) Temperature [96.8-100.4 DegF] 97.0 DegF (12/28/24 12:45 PM) 97.6 DegF (12/28/24 11:30 AM) 97.9 DegF (12/28/24 6:23 AM) Liters per Minute 2 L/min (12/28/24 12:15 PM) 6 L/min (12/28/24 11:45 AM) 6 L/min (12/28/24 11:30 AM) Mode of Delivery (Oxygen) Room air (12/28/24 1:30 PM) Room air (12/28/24 12:30 PM) Nasal cannula (12/28/24 12:15 PM) Blood pressure sites Arm, right (12/28/24 11:30 AM) Arm, left (12/28/24 6:23 AM) Temperature Route Temporal (12/28/24 11:30 AM) Temporal (12/28/24 6:23 AM) Dry Weight 74.8 kg (12/28/24 6:23 AM) Weight Obtained Via Standing scale (12/28/24 6:23 AM) Dry Weight Obtained Via Standing scale (12/28/24 6:23 AM) Social History Social History Type Response Smoking Status Never (less than 100 in lifetime) entered on: 08/12/24 Sex Sex Representation Female (finding) History and physical note * Event Display: History and Physical Hospital Authored Date: [id number] Note * Steffanie Tejada RN: PERFORM Event Display: Discharge/Transfer Note Hospital Authored Date: [id number] Nursing Discharge Note Entered On: 12/28/2024 15:31 EST Performed On: 12/28/2024 15:31 EST by Steffanie Tejada RN Nursing Discharge Note 2 Discharge Time : 12/28/2024 15:29 EST Discharge Level of Care at Discharge : Home/Long-Term/Foster Care Patient Left Unit Via : Wheelchair Patient Accompanied Off Unit with : Significant other DC Instructions Provided & Signed by Pt : Yes Patient Understands D/C Instructions : Yes Patient Instructions Discharge Signed : Yes Did Pt have Specialty Bed or Wound Vac : No Steffanie Tejada RN - 12/28/2024 15:31 EST * Steffanie Tejada RN: PERFORM Event Display: Patient Education/Instruction Authored Date: [id number] Surgery Adult Discharge Instructions [address] [address] Name: CHRIS SULTANA : 1970?? Visit: 12/28/2024 05:33?? Current Date: 12/28/2024 15:07 ?? Account: [id number]?? Surgery Discharge Instructions We would like to thank you for allowing us to assist you with your healthcare needs. The following includes patient education materials and information regarding your injury/illness. Our entire staffstrives to provide an excellent experience for our patients and their families. PLEASE ENSURE YOU FOLLOW-UP PER THE INSTRUCTIONS BELOW! ?? YOUR OPINION IS IMPORTANT TO US! Please complete the survey you may receive by mail or email. Your feedback will be used to make improvements to the healthcare experiences of our patients and their families. Surveys are administered by [employer] ?? If further treatment with your primary care physician or another doctor is recommended, it is important for you to keep the appointment. Call your primary care physician or return to the Emergency Department immediately if your condition worsens, fails to improve, or new symptoms develop. If you need to find a doctor, you can call [facility] Link for a referral at [phone] or toll free at [phone]) or log in to [email or web address] ?? [facility], in keeping with [facility] guidance, no longer requires face masks for staff, patientsor visitors in most situations. Similiar to time spent indoors at other locations, there is the chance that you were exposed to repiratory viruses during your time with us (such as flu or COVID-19). If you develop symptoms concerning for a viral respiratory infection, please seek testing (and treatment if indicated) from your medical provider or home test kit. ?? You can view and manage your care through the patient portal or by using a health care yung of your choosing. [address] is a website that allows you to securely view your medical information including your hospital discharge summary, office visit summaries, medications and follow-up visits. You can also request appointments, renew medications, and request access to your medical information using a health care yung of your choosing, or just ask a question. You are entitled to know the individuals who participated in your treatment. This information is available within your medical record and will be provided upon your request. You can enroll at [email or web address] or register d uring your next office visit. You have been discharged from [facility], Patient Care Unit: [facility]??. If you have any questions regarding these instructions after you leave, please call us and we will be happy to assist you. [facility] Your Care Team Attending Physician Quan (POLICEMAN) Jordi ALMENDAREZ?? Consulting Providers Quan (POLICEMAN) Jordi ALMENDAREZ?? Discharging Providers Albert Damon MD Reason for Admission ABNORMAL UTERINE BLEEDINGPELVIC PAIN CS DS Primary Care Provider Pato ALMENDAREZ, Kelsey Watters? Advance Directive Health Care Proxy on File No What to do next Instructions From Your Doctor ?? Orders? 12/28/24 11:27:00 EST?? Instructions from your Care Team See attached sheet for instructions?? You Need to Schedule the Following Appointments Follow Up with??Quan (POLICEMAN) Jordi ALMENDAREZ Where: [facility] [place] [address]- Discharge Medications CHRIS SULTANA :1970 Visit Date:12/28/2024 Medications: Please continue your medications until treatment is completed or stopped by your provider. You may resume your daily prescription medications. Discuss any questions related to medications with your provider. What How Much When Instructions Next Dose New Acetaminophen (Tylenol 325 mg oral tablet) 2 tab(s) Oral Every 4 hours as needed for for pain Pickup at [facility]/pharmacy #[id number] New Ibuprofen (ibuprofen 600 mg oral tablet) 1 tab(s) Oral 4 times a day as needed for for pain Pickup at [facility]/pharmacy #[id number] New Oxycodone (oxyCODONE 5 mg oral tablet) 1 tab(s) Oral Every 6 hours as needed for for pain Pickup at [facility]/pharmacy #2070 6 pm New Polyethylene Glycol 3350 (MiraLax oral powder for reconstitution) 17 gram Oral Daily dissolve in water or juice ?? Pickup at [facility]/pharmacy #[id number] New Simethicone (simethicone 80 mg oral tablet, chewable) 1 tab(s) Chew 4 times a day as needed for as needed for gas Pickup at [facility]/pharmacy #2070 Unchanged Amlodipine (amLODIPine 10 mg oral tablet) 1 tab(s) Oral Daily Unchanged Losartan (losartan 100 mg oral tablet) 1 tab(s) Oral Daily Unchanged Metoprolol (metoprolol 100 mg oral tablet, extended release) 1 tab(s) Oral Daily Unchanged Naproxen (naproxen 250 mg oral tablet) 1 tab(s) Oral Twice a day as needed for for pain Unchanged Nitroglycerin (nitroglycerin 0.3 mg sublingual tablet) 1 tab(s) Sublingual Every 5 minutes as needed for as needed for chest pain not to exceed 3 doses/ 15 min--if pain persists, seek medical attention ?? Unchanged Omeprazole (omeprazole 20 mg oral delayed release tablet) 1 tab(s) Oral Daily Unchanged Spironolactone (spironolactone 50 mg oral tablet) 1 tab(s) Oral Daily Pharmacy Information [facility]/pharmacy #[id number]: [address], [place] [phone] Allergies (NKA means No Known Allergies) NKA Education Materials Below is the list of Educational Leaflet Providered with your Discharge Instructions. [employer] Patient Education - Surgery Medical Daystay Surgical Overnight Discharge Instructions?? [employer] Patient Education - ??NSAID Analgesic Schedule?? Valuables and Belongings I fully understand and agree that [facility] accepts no responsibility for all my personal property including clothing, toilet articles, radios, jewelry, dentures, hearing aids, rings, money, or any other property that is in my possession or is brought to me after admission. I understand certain valuables may be placed in a hospital safe for a short period of time. I understand that the hospital is not liable for loss or damage due to accident, fire, or other natural occurrence while said property is in the safe. I accept full responsibility for any personal property that I keep with me, and will not hold the hospital responsible in case of loss or disappearance. I acknowledge that i have been encouraged to send valuables and belongings home. ?? No Valuables/Belongings: No valuables/belongings present Possessions released to: Daughter took belongings Date for Pt to Sign Valuables/Belongings: 12/28/24 06:24:00 ?? Other Discharge Information ? Pulmonary Rehab Status?? Pulmonary Rehab Discharge Status?? Respiratory Rate: 25 br/min ? Common Emergency Awareness Tips IS IT A STROKE? Act FAST and Check for these signs: FACE Does the face look uneven? ARM Does one arm drift down? SPEECH Does their speech sound strange? TIME Call at any sign of stroke ?? Heart Attack Signs Chest discomfort: Most heart attacks involve discomfort in the center of the chest and lasts more than a few minutes, or goes away and comes back. It can feel like uncomfortable pressure, squeezing, fullness or pain. Discomfort in upper body: Symptoms can include pain or discomfort in one or both arms, back, neck, jaw or stomach. Shortness of breath: With or without discomfort. Other signs: Breaking out in a cold sweat, nausea, or lightheaded. Remember, MINUTES DO MATTER. If you experience any of these heart attack warning signs, call to get immediate medical attention! ?? Smoking can increase your chances of developing chronic health problems and can cause harmful effects to other family members in your house. If you smoke, you are strongly encouraged to quit. Please call [facility] [employer] Link at [phone] or [phone]phone [employer] Telegraph ([phone]) or log in to [email or web address] for referrals to smoking cessation programs. ?? The National Suicide Prevention Hotline is available 03/06 if you or someone you know needs to find a reason to keep living. By calling 9-444-504-Magazino (6672) you'll be connected to a skilled, trained counselor at a crisis center in your area. SURGERY DISCHARGE INSTRUCTIONS SIGNATURE PAGE CHRIS SULTANA Location:[facility] Registration Date and Time:12/28/2024 05:33 EST Primary Care Physician: Pato ALMENDAREZ, Kelsey Watters, Attending Physician: Quan (POLICEMAN) Jordi ALMENDAREZ, I CHRIS SULTANA, have received the above patient education materials/instructions and have verbalized understanding. If ambulance or transport services are being used I further acknowledge being given a choice of service. ?? If you need to contact me, please call me at this number: . Patient/Thermodynamics Professor Name: CHRIS SULTANA Patient/Thermodynamics Professor Signature: Relationship to Patient: Witness Name/Signature: Date: * Steffanie Tejada RN: PERFORM Event Display: Patient Education/Instruction Authored Date: [id number] Surgery Adult Discharge Instructions [place] [id number] Name: CHRIS SULTANA : 1970?? Visit: 12/28/2024 05:33?? Current Date: 12/28/2024 15:06 ?? Account: [id number]?? Surgery Discharge Instructions We would like to thank you for allowing us to assist you with your healthcare needs. The following includes patient education materials and information regarding your injury/illness. Our entire staffstrives to provide an excellent experience for our patients and their families. PLEASE ENSURE YOU FOLLOW-UP PER THE INSTRUCTIONS BELOW! ?? YOUR OPINION IS IMPORTANT TO US! Please complete the survey you may receive by mail or email. Your feedback will be used to make improvements to the healthcare experiences of our patients and their families. Surveys are administered by [employer] ?? If further treatment with your primary care physician or another doctor is recommended, it is important for you to keep the appointment. Call your primary care physician or return to the Emergency Department immediately if your condition worsens, fails to improve, or new symptoms develop. If you need to find a doctor, you can call Psych[facility] for a referral at [phone] or toll free at [phone] ([phone]) or log in to [email or web address].. ?? [facility], in keeping with [facility] guidance, no longer requires face masks for staff, patientsor visitors in most situations. Similiar to time spent indoors at other locations, there is the chance that you were exposed to repiratory viruses during your time with us (such as flu or COVID-19). If you develop symptoms concerning for a viral respiratory infection, please seek testing (and treatment if indicated) from your medical provider or home test kit. ?? You can view and manage your care through the patient portal or by using a health care yung of your choosing. [address] is a website that allows you to securely view your medical information including your hospital discharge summary, office visit summaries, medications and follow-up visits. You can also request appointments, renew medications, and request access to your medical information using a health care yung of your choosing, or just ask a question. You are entitled to know the individuals who participated in your treatment. This information is available within your medical record and will be provided upon your request. You can enroll at [email or web address] or register d uring your next office visit. You have been discharged from [facility], Patient Care Unit: [facility]??. If you have any questions regarding these instructions after you leave, please call us and we will be happy to assist you. [facility] Your Care Team Attending Physician Quan (POLICEMAN) Jordi ALMENDAREZ?? Consulting Providers Quan (POLICEMAN) Jordi ALMENDAREZ?? Discharging Providers Albert Damon MD Reason for Admission ABNORMAL UTERINE BLEEDINGPELVIC PAIN CS DS Primary Care Provider Kelsey Whyte MD? Advance Directive Health Care Proxy on File No What to do next Instructions From Your Doctor ?? Orders? 12/28/24 11:27:00 EST?? Instructions from your Care Team See attached sheet for instructions?? You Need to Schedule the Following Appointments Follow Up with??Quan (POLICEMAN) Jordi ALMENDAREZ Where: [facility] [place] [address]- Discharge Medications CHRIS SULTANA :1970 Visit Date:12/28/2024 Medications: Please continue your medications until treatment is completed or stopped by your provider. You may resume your daily prescription medications. Discuss any questions related to medications with your provider. What How Much When Instructions Next Dose New Acetaminophen (Tylenol 325 mg oral tablet) 2 tab(s) Oral Every 4 hours as needed for for pain Pickup at [facility]/pharmacy #[id number] New Ibuprofen (ibuprofen 600 mg oral tablet) 1 tab(s) Oral 4 times a day as needed for for pain Pickup at [facility]/pharmacy #2070 New Oxycodone (oxyCODONE 5 mg oral tablet) 1 tab(s) Oral Every 6 hours as needed for for pain Pickup at [facility]/pharmacy #2070 New Polyethylene Glycol 3350 (MiraLax oral powder for reconstitution) 17 gram Oral Daily dissolve in water or juice ?? Pickup at [facility]/pharmacy #2070 New Simethicone (simethicone 80 mg oral tablet, chewable) 1 tab(s) Chew 4 times a day as needed for as needed for gas Pickup at [facility]/pharmacy #2070 Unchanged Amlodipine (amLODIPine 10 mg oral tablet) 1 tab(s) Oral Daily Unchanged Losartan (losartan 100 mg oral tablet) 1 tab(s) Oral Daily Unchanged Metoprolol (metoprolol 100 mg oral tablet, extended release) 1 tab(s) Oral Daily Unchanged Naproxen (naproxen 250 mg oral tablet) 1 tab(s) Oral Twice a day as needed for for pain Unchanged Nitroglycerin (nitroglycerin 0.3 mg sublingual tablet) 1 tab(s) Sublingual Every 5 minutes as needed for as needed for chest pain not to exceed 3 doses/ 15 min--if pain persists, seek medical attention ?? Unchanged Omeprazole (omeprazole 20 mg oral delayed release tablet) 1 tab(s) Oral Daily Unchanged Spironolactone (spironolactone 50 mg oral tablet) 1 tab(s) Oral Daily Pharmacy Information [facility]/pharmacy #[id number]: [address], [place] [phone] Allergies (NKA means No Known Allergies) NKA Education Materials Below is the list of Educational Leaflet Providered with your Discharge Instructions. [employer] Patient Education - Surgery Medical Daystay Surgical Overnight Discharge Instructions?? [employer] Patient Education - ??NSAID Analgesic Schedule?? Valuables and Belongings I fully understand and agree that [facility] accepts no responsibility for all my personal property including clothing, toilet articles, radios, jewelry, dentures, hearing aids, rings, money, or any other property that is in my possession or is brought to me after admission. I understand certain valuables may be placed in a hospital safe for a short period of time. I understand that the hospital is not liable for loss or damage due to accident, fire, or other natural occurrence while said property is in the safe. I accept full responsibility for any personal property that I keep with me, and will not hold the hospital responsible in case of loss or disappearance. I acknowledge that i have been encouraged to send valuables and belongings home. ?? No Valuables/Belongings: No valuables/belongings present Possessions released to: Daughter took belongings Date for Pt to Sign Valuables/Belongings: 12/28/24 06:24:00 ?? Other Discharge Information ? Pulmonary Rehab Status?? Pulmonary Rehab Discharge Status?? Respiratory Rate: 25 br/min ? Common Emergency Awareness Tips IS IT A STROKE? Act FAST and Check for these signs: FACE Does the face look uneven? ARM Does one arm drift down? SPEECH Does their speech sound strange? TIME Call at any sign of stroke ?? Heart Attack Signs Chest discomfort: Most heart attacks involve discomfort in the center of the chest and lasts more than a few minutes, or goes away and comes back. It can feel like uncomfortable pressure, squeezing, fullness or pain. Discomfort in upper body: Symptoms can include pain or discomfort in one or both arms, back, neck, jaw or stomach. Shortness of breath: With or without discomfort. Other signs: Breaking out in a cold sweat, nausea, or lightheaded. Remember, MINUTES DO MATTER. If you experience any of these heart attack warning signs, call to get immediate medical attention! ?? Smoking can increase your chances of developing chronic health problems and can cause harmful effects to other family members in your house. If you smoke, you are strongly encouraged to quit. Please call [facility] [employer] [facility] at [phone] or [phone] ([phone]) or log in to www.[email or web address] for referrals to smoking cessation programs. ?? The National Suicide Prevention Hotline is available 03/06 if you or someone you know needs to find a reason to keep living. By calling 6-109-937-[employer] (1801) you'll be connected to a skilled, trained counselor at a crisis center in your area. SURGERY DISCHARGE INSTRUCTIONS SIGNATURE PAGE CHRIS SULTANA Location:[facility] Registration Date and Time:12/28/2024 05:33 EST Primary Care Physician: Pato ALMENDAREZ, Kelsey Watters, Attending Physician: Quan (POLICEMAN) , Jordi Smiley, I CHRIS SULTANA, have received the above patient education materials/instructions and have verbalized understanding. If ambulance or transport services are being used I further acknowledge being given a choice of service. ?? If you need to contact me, please call me at this number: . Patient/Thermodynamics Professor Name: Patient/Thermodynamics Professor Signature: Relationship to Patient: Witness Name/Signature: Date: * Steffanie Tejada RN: PERFORM Event Display: Patient Education Leaflets Authored Date: [id number] Surgery Medical Daystay Surgical Overnight Discharge Instructions ?? 295 Medical Daystay/Surgical Overnight Discharge Instructions ? Since your coordination and judgment may be altered by medication and/or anesthesia, a responsible adult must drive you home from the hospital. ? If you have received medication for pain or sedation while under our care, you should not drive, operate machinery, drink alcohol, or sign any legal documents for 24 hours.?? You should have someone with you at home tonight. ? Remain at home the day of discharge.?? You may be up and about unless otherwise instructed by your physician. ? You may resume your daily prescription medication schedule.?? Any depressant medication should be avoided for 24 hours unless otherwise instructed by your surgeon or anesthesiologist. ? Call your physician for a follow-up appointment.? If you experience unusual or severe pain not relied by your pain medication, excessive bleedingor drainage, persistent nausea and vomiting, excessive swelling or redness, foul odor from incisionsite or fever over 100.6F, you need to call your physician. ? A follow-up phone call by a nurse will be made the day after your procedure.?? If you have stayed with us over night, you will not be receiving a follow-up phone call. ? Nausea and vomiting are a common side effect of prescription pain medication.?? We recommend that pills are not taken on an empty stomach.?? While taking any prescription pain medication you should not drive or drink alcohol. ? * Steffanie Tejada RN: PERFORM Event Display: Patient Education Leaflets Authored Date: [id number] NSAID Analgesic Schedule ?? 604 NSAID???s Analgesic Schedule ?? Pain is the primary source of illness following your procedure and can include dehydration, difficulty and painful swallowing, and weight loss. These symptoms can lead to increased post-operative visits and hospital readmission. The best way to control pain is to take pain medications regularly. Your doctor has recommended both Ibuprofen and Acetaminophen (generic/store brands are okay, too). These can be picked up over the counter at your pharmacy of choice. Follow the instructions on the bottle to determine the proper dosage to give. The simplest way to take these medications it to rotate the two at 3-hour intervals. Here is a sample diagram. The time you take your medications may vary from this example. Do not give Ibuprofen more than every 6 hours or Acetaminophen every 4 hours. Do not give Acetaminophen if your doctor has given you a prescription that contains Acetaminophen. ? Patient Care team information Care Team Personnel Name: Kelsey Whyte MD Position: [facility] Outreach Member Role: PCP Address: [address] [place] [address] [address] [place] [address]- Telecom: Care Team Related Persons Name: SCOTT SULTANA Name: CLAUDIA MUNOZ Insurance Providers Guarantor name: NIDHI Health Plan Information #: 2 Payer: [facility] FF NON BHP HMO Member Number: [id number] Policy Number: NIDHI Group Number: [id number] Health Plan Information #: 1 Payer: [facility] Member Number: [id number] Policy Number: NIDHI Group Number: [id number]
--- OUTSIDE RECORDS SUMMARY | 2025-01-19 09:28 | XMS_ITS | Encounter Summary ---
Author Organization [facility] Address [address] [place] [address] Phone Care Team Providers Care Auto Service Writer Name Role Phone Kelsey Whyte MD Primary Care Provider Encounter Details Date Type Department Care Team (Late st Contact Info) Description 01/10/2023 Telephone [facility] [address] [place] [address] Maude Pearson MA Social History [...] on file documented as of this encounter Miscellaneous Notes * Telephone Encounter - Maude Pearson MA - 01/10/2023 2:45 PM EST Pt called, she would like to discuss the results of her 24 hr abpm with you. Please call her back at [phone] Thank you documented in this encounter Plan of Treatment Not on file documented as of this encounter Visit Diagnoses Not on filedocumented in this encounter Care Teams Auto Service Writer Relationship Specialty Start Date End Date Kelsey Whyte MD [address] [place] [address] PCP - General 11/21/20 documented as of this encounter
== END 2025-01-19 08:40 | disposition home or self-care (01) ==
LOC: HO.US 08:39
PROVIDERS: PCP Internal Medicine; Visit Provider Internal Medicine
DX: I70.1 Atherosclerosis of renal artery (principal)
CPT/HCPCS: 76775; 93975

== ENCOUNTER → 2025-01-19 08:41 | Outpatient (BNV) | payer OTHER, SELFPAY | PROVIDERS: PCP Internal Medicine; Visit Provider Radiology Diagnostic Radiology | DX: I70.1 Atherosclerosis of renal artery (principal) | CPT/HCPCS: 76775; 93975 ==

== ENCOUNTER 2025-02-10 10:47 | Outpatient (REF) | payer OTHER, SELFPAY ==
--- OUTSIDE RECORDS SUMMARY | 2025-02-10 12:54 | XMS_ITS | Clinical Summary ---
Author Organization [facility] Address [address] [facility] [address] [place] [address] Phone Care Team Providers Care Petroleum Geologist Name Role Phone Kelsey Whyte MD Primary [...] Influenza Vaccine (#1) 2024 Insurance Care Teams Petroleum Geologist Relationship Specialty Start Date End Date Kelsey Whyte MD [facility] PCP - General 11/21/20
--- OUTSIDE RECORDS SUMMARY | 2025-02-10 12:54 | XMS_ITS | Encounter Summary ---
Author Organization [facility] Address [address] [place] [address] Phone Care Team Providers Care Inside Steward/Stewardess Name Role Phone Kelsey Whyte MD Primary Care Provider Encounter Details Date Type Department Care Team (Late st Contact Info) Description 01/10/2023 Telephone [facility] [address] [place] [address] Maude Pearson MA Social History [...] with you. Please call her back at [phone] Thank you documented in this encounter Plan of Treatment Not on file documented as of this encounter Visit Diagnoses Not on filedocumented in this encounter Care Teams Inside Steward/Stewardess Relationship Specialty Start Date End Date Kelsey Whyte MD [address] [place] [address] PCP - General 11/21/20 documented as of this encounter
--- OUTSIDE RECORDS SUMMARY | 2025-02-10 12:54 | XMS_ITS | Encounter Summary ---
Author Organization [facility] Address [address] [place] [address] Phone Care Team Providers Care Dozer Operator Name Role Phone Kelsey Whyte MD Primary Care Provider Encounter Details Date Type Department Care Team (Late st Contact Info) Description 12/19/2022 Documentation Only [facility] [address] [place] [address] Maude Pearson MA Social History [...] on filedocumented in this encounter Care Teams Dozer Operator Relationship Specialty Start Date End Date Kelsey Whyte MD [address] [facility] [address] [place] [address] PCP - General 11/21/20 documented as of this encounter
== END 2025-02-10 10:48 | disposition home or self-care (01) ==
LOC: HO.MAMMO 10:47
PROVIDERS: PCP Internal Medicine; Visit Provider Internal Medicine
DX: Z12.31 Encounter for screening mammogram for malignant neoplasm of breast (principal)
CPT/HCPCS: 77063; 77067

== ENCOUNTER → 2025-02-10 11:15 | Outpatient (BNV) | payer OTHER, SELFPAY | PROVIDERS: PCP Internal Medicine; Visit Provider Internal Medicine | DX: Z12.31 Encounter for screening mammogram for malignant neoplasm of breast (principal) | CPT/HCPCS: 77063; 77067 ==

== ENCOUNTER 2025-03-01 10:17 | Outpatient (REF) | payer OTHER, SELFPAY ==
--- OUTSIDE RECORDS SUMMARY | 2025-03-01 10:20 | XMS_ITS | Encounter Summary ---
Author Organization [facility] Address [address] [place] [address] Phone Care Team Providers Care Court Crier Name Role Phone Kelsey Whyte MD Primary Care Provider Encounter Details Date Type Department Care Team (Late st Contact Info) Description 01/10/2023 Telephone [facility] [address] [place] [address] Maude Pearson MA Social History [...] with you. Please call her back at [phone] Thank you documented in this encounter Plan of Treatment Not on file documented as of this encounter Visit Diagnoses Not on filedocumented in this encounter Care Teams Court Crier Relationship Specialty Start Date End Date Kelsey Whyte MD [address] [place] [address] PCP - General 11/21/20 documented as of this encounter
--- OUTSIDE RECORDS SUMMARY | 2025-03-01 10:20 | XMS_ITS | Clinical Summary ---
Author Organization [facility] Address [address] [facility] [address] [place] [address] Phone Care Team Providers Care Meat Washer Name Role Phone Kelsey Whyte MD Primary [...] Last Done Comments Breast Cancer Screening 1971 Hepatitis B Vaccine (1 of 3 - 19+ 3-dose series) 07/11 Pneumococcal Vaccine: 50+ Years (1 of 2 - PCV) 990 Colorectal Cancer Screening: Annual FOBT 2020 Colorectal Cancer Screening: Colonoscopy 2020 Colorectal Cancer Screening: Sigmoidoscopy 2020 Influenza Vaccine (Season Ended) 2025 Insurance Care Teams Meat Washer Relationship Specialty Start Date End Date Kelsey Whyte MD [facility] [address] PCP - General 11/21/20
--- OUTSIDE RECORDS SUMMARY | 2025-03-01 10:20 | XMS_ITS | Encounter Summary ---
Author Organization [facility] Address [address] [place] [address] Phone Care Team Providers Care Surveillance Dual Rate Officer Name Role Phone Kelsey Whyte MD Primary Care Provider [phone] Encounter Details Date Type Department Care Team (Late st Contact Info) Description 12/19/2022 Documentation Only [facility] [address] [place] [address] Maude Pearson MA Social History [...] on filedocumented in this encounter Care Teams Surveillance Dual Rate Officer Relationship Specialty Start Date End Date Kelsey Whyte MD [address] [facility] [address] [place] [address] PCP - General 11/21/20 documented as of this encounter
[2025-03-01 11:00] LABS: Anion Gap 11 (12-20); Blood Urea Nitrogen 8 mg/dL (9-16); Calcium 9.3 mg/dL (8.4-10.2); Carbon Dioxide 24 mmol/L (22-29); Chloride 110 mmol/L (96-108); Estimated Glomerular Filt Rate > 60; Glucose Random 95 mg/dL (60-115); Potassium 3.8 mmol/L (3.3-5.1); Sodium 141 mmol/L (135-145)
== END 2025-03-01 10:18 | disposition home or self-care (01) ==
LOC: HO.LAB 10:17
PROVIDERS: PCP Internal Medicine; Visit Provider Internal Medicine
DX: R07.2 Precordial pain (principal)
CPT/HCPCS: 36415; 80048

== ENCOUNTER 2025-03-15 09:54 | Outpatient (AMB) | payer OTHER, SELFPAY ==
[2025-03-15 09:58] VITALS: BP 148/82; PULSE 85; BMI 33.4
--- NOTE | 2025-03-15 09:58 | A.OFFVIS_ITS ---
Vital Signs 03/15/25 09:58 Height 4 ft 11 in Weight 165 lb 5.547 oz BMI 33.4 BP 148/82 H Blood Pressure Location Lt brachial Position Sitting Pulse 85 Intake Visit Reasons: f/up-echo-cta Manager Document Control Required: Yes Manager Document Control Language: Hand Reamer Name: voice khalil [id number] Allergies No Known Allergies Allergy (Verified 03/15/25 10:01) Medication List - Last Reconciled 03/15/25 by Asia Webb NP-C amlodipine 10 mg PO DAILY losartan-hydrochlorothiazide 100-25 mg 1 tab PO DAILY metoprolol succinate ER 100 mg PO DAILY nitroglycerin 0.3 mg sublingual Q5M PRN omeprazole 20 mg PO DAILY rosuvastatin 20 mg PO DAILY HPI HPI f/up-echo-cta: Details: Marianna is a 54-year-old female with past medical history of hypertension, hyp erlipidemia, obesity, who reported chest discomfort and shortness of breath and underwent echocardiogram and CTA of the coronary arteries. She also had difficult to control blood pressure and underwent renal Doppler study and now presents for follow-up. Today she reports that she continues to get random pressure in her chest. It is not brought on by exertional activities. She has some shortness of breath at times with exertion. No concerning shortness of breath at rest, no PND, orthopnea or edema. No lightheadedness, presyncope, syncope, falls. Compliant with medications. Tells me her blood pressure is variable at home with systolic ranging 140-180. When her blood pressures are elevated she will notice a headache. PFSH Medical History PONV (postoperative nausea and vomiting) Tension headache Depression Iron deficiency anemia On beta uriel at home Colon cancer screening GERD (gastroesophageal reflux disease) Hypertension Lipoma of right shoulder Surgical History H/O right breast biopsy History of endometrial ablation Hx of tubal ligation Status post excision of lipoma History of bilateral breast reduction surgery Family History Mother Breast cancer Bone cancer Maternal Aunt Breast cancer Social History Alcohol intake: current Alcohol intake frequency: holidays/special occasions o nly Patient Tobacco Use Status: Never used Tobacco Female Reproductive History Menstrual Age of Menarche: 12 Review of Systems Const All systems reviewed & are unremarkable except as noted in HPI and below ENT Denies dizziness Card Reports chest pain, Denies chest pain at rest, Denies chest pain with activity, Denies rapid heart rate, Denies pedal edema, Denies edema, Denies leg edema, Denies lightheadedness, Denies palpitations, Reports dyspnea, Denies dyspnea on exertion and Denies orthopnea Resp Denies cough, Reports dyspnea and Denies dyspnea on exertion GI Denies hematochezia and Denies change in stool character Musc Denies abnormal gait, Denies limited range of motion, Denies muscle cramps, Denies muscle weakness, Denies numbness, Denies radiating pain into limb, Denies stiffness and Denies tingling Neuro Denies abnormal gait, Denies dizziness, Denies numbness and Denies tingling Endo Denies palpitations Physical Exam Vital Signs: Last Vital Signs Pulse 85 03/15/25 09:58 BP 148/82 H 03/15/25 09:58 BMI result Body Mass Index 33.4 Const General: cooperative, healthy appearing, comfortable and no acute distress Orientation/consciousness: patient oriented x3 Neck Neck: Yes normal visual inspection Resp Effort & Inspection: normal respiratory effort Auscultation: clear to auscultation bilaterally, no rales, no rhonchi and no wheezes Cardio Rate: regular rate Rhythm: regular rhythm Heart sounds: S1 normal heart sound present, S2 normal heart sound present, no gallops, no murmurs and no rubs Neuro General: patient oriented x3 Extrem General: Yes normal to inspection, No no pedal edema and No calf tenderness Psych Appearance: grossly normal Mental Status: mental status grossly normal Speech and movement: Normal speech and movement present Assessment & Plan Assessment & Plan (1) Precordial chest pain: Code(s): R07.2 - Precordial pain Category: Medical Plan: Reports of atypical chest discomfort. Cardiac risk factors of hypertension, hyperlipidemia, obesity. EKG done last visit showed normal sinus rhythm, nonspecific T-wave abnormality, rate 85. Echocardiogram done 12/21/2024 showed EF 65-70%, impaired relaxation, no valve abnormalities. CTA of the coronary arteries done 03/10/2025 shows no hemodynamically significant stenosis. As results reviewed with her in detail. Informed her that her chest discomfort is noncardiac. She does have elevated blood pressure readings at times which can contribute to symptoms. Continue with risk factor modification. (2) SOB (shortness of breath): Code(s): R06.02 - Shortness of breath Category: Medical Plan: Reports of exertional shortness of breath at times. Cardiac testing as above with no acute findings. She is obese with BMI 33.4. She may have some deconditioning as well. These factors may contribute, reviewed with her. (3) Hypertension: Code(s): I10 - Essential (primary) hypertension Category: Medical Qualifiers: Hypertension type: primary hypertension Qualified Code(s): I10 - Essential (primary) hypertension Plan: Blood pressure goal less than 130/80. Elevated readings reported at home and noted here in the office. Renal Doppler done 01/19/2025 showed no renal artery stenosis. She is currently on amlodipine 10 mg daily, losartan 100 mg daily, hydrochlorothiazide 25 mg daily and metoprolol XL 100 mg daily. Will have her stop metoprolol and changed over to carvedilol 12.5 mg b.i.d.. Will arrange for office blood pressure and pulse check in 1 week. Discussed low-salt diet, weight loss, increasing physical activity. Cardiology office visit 6-8 weeks for further med titration. Plan Time spent on chart review, documentation, interview and assessment Medications: New carvedilol must administer with a meal/food STOP Metoprolol Start Carvedilol 12.5 mg PO BID 60 tabs 5RF Coding Level of Care Code Est Pt Level 4 (41220) Complex EM visit Add On G2211 Diagnoses Precordial chest pain R07.2 SOB (shortness of breath) R06.02 Primary hypertension I10 Hypertension type: primary hypertension Time Spent (min) 32
--- OUTSIDE RECORDS SUMMARY | 2025-03-15 11:03 | XMS_ITS | Encounter Summary ---
Author Organization [facility] Address [address] [place] [address] Phone Care Team Providers Care Heating Element Builder Name Role Phone Kelsey Whyte MD Primary Care Provider Encounter Details Date Type Department Care Team (Late st Contact Info) Description 12/19/2022 Documentation Only [facility] [address] [place] [address] Maude Pearson MA Social History [...] on filedocumented in this encounter Care Teams Heating Element Builder Relationship Specialty Start Date End Date Kelsey Whyte MD [address] [facility] [address] [place] [address] PCP - General 11/21/20 documented as of this encounter
--- OUTSIDE RECORDS SUMMARY | 2025-03-15 11:03 | XMS_ITS | Clinical Summary ---
Author Organization [facility] Address [address] [facility] [address] [place] [address] Phone Care Team Providers Care Reel Repairer Name Role Phone Kelsey Whyte MD Primary [...] Vaccine (Season Ended) 2025 Insurance Care Teams Reel Repairer Relationship Specialty Start Date End Date Kelsey Whyte MD [facility] [address] PCP - General 11/21/20
--- OUTSIDE RECORDS SUMMARY | 2025-03-15 11:03 | XMS_ITS | Encounter Summary ---
Author Organization [facility] Address [address] [place] [address] Phone Care Team Providers Care Mold Laminator Name Role Phone Kelsey Whyte MD Primary Care Provider Encounter Details Date Type Department Care Team (Late st Contact Info) Description 01/10/2023 Telephone [facility] [address] [place] [address] Maude Pearson MA Social History [...] with you. Please call her back at [phone] Thank you documented in this encounter Plan of Treatment Not on file documented as of this encounter Visit Diagnoses Not on filedocumented in this encounter Care Teams Mold Laminator Relationship Specialty Start Date End Date Kelsey Whyte MD [address] [place] [address] PCP - General 11/21/20 documented as of this encounter
== END 2025-03-15 10:37 | disposition home or self-care (01) ==
LOC: HO.HCS 09:54
PROVIDERS: PCP Internal Medicine; Visit Provider Nurse Practitioner Family
DX: R07.2 Precordial pain (principal); R06.02 Shortness of breath; I10 Essential (primary) hypertension
CPT/HCPCS: 99214